=== PATIENT | male | born 1955 | race Caucasian/White ===

== ENCOUNTER 2019-04-11 12:27 | Emergency (ER) | payer OTHER, SELFPAY ==
[2019-04-11 12:27] VITALS: BP 154/101; PULSE 77; RESP 16; TEMP 36.4; O2SAT 99; BMI 31.1
--- NOTE | 2019-04-11 12:49 | ED.VIS.GEN ---
History of Present Illness Chief Complaint: Ear Problem Informant: Patient, Significant Other Onset: Yesterday Context: Gradual Onset Timing: Continuous Quality: sharp Location: right ear Current Severity: Severe Maximum Severity: Severe Worsened by: nothing Relieved by: nothing Associated Symptoms: Decreased hearing right ear Narrative: 63-year-old male presents with worsening right ear pain and decreased hearing of his right ear. No tenderness or trauma. No vomiting or diarrhea. No headache or neck pain. He is not lightheaded or dizzy. No history of similar symptoms. Denies any upper respiratory symptoms. Denies any neurological deficits. Prior similar symptoms: No Recent Illness/Hospitalization: No Past Medical History - Allergies and Home Meds Allergies/Adverse Reactions: Allergies No Known Allergies Allergy (Verified 04/11/19 12:29) Primary Care Physician: Bernard Ortiz MD [STAFF PHYSICIAN] - As soon as possible Prior records reviewed: Yes Past Medical History: None Surgical History: noncontributory Lives: With Family Smoking Status: Former smoker Alcohol: Occasional Review of Systems All systems negative except as indicated General: Denies: Chills, Fever Eyes: Denies: Visual changes - bilaterally, Blurred Vision - bilaterally ENT: Reports: Right ear pain. Denies: Rhinorrhea, Sore throat Cardiovascular: Denies: Chest pain, Palpitations, Heart racing Respiratory: Denies: Dyspnea, Cough, Sputum Gastrointestinal: Denies: Abdominal pain, Nausea, Vomiting, Diarrhea Genitourinary: Denies: Dysuria, Hematuria, Frequency Musculoskeletal: Denies: Neck pain, Back pain Skin: Denies: Rash, Abscess, Abrasions, Wounds Neurological: Denies: Headache, Weakness, Parasthesia Psych: Denies: Depression, Anxiety, Suicidal thoughts Endocrine: Denies: Polyuria, Polydipsia Physical Exam Vital Signs/Narrative: Vital Signs Temp Pulse Resp BP Pulse Ox 04/11/19 12:27 97.6 F L 77 16 154/101 H 99 Inital Vital Signs reviewed: Yes General: Well nourished, Well developed, No Acute Distress Head: Normocephalic, Atraumatic Eyes: Perrl, EOMI ENT: - - Patient has right otitis externa with purulent drainage and redness and swelling of the right external ear canal. Patient has a large white area on the tympanic membrane with concern for perforation but there is no definitive evidence of a perforation on visual inspection. There is no mastoid tenderness. Left external ear canal and tympanic membrane both are normal. Neck: Supple, Nontender, No lymphadenopathy Cardiovascular: Regular rate, Regular rhythm Respiratory: No distress, CTA bilaterally, Chest nontender Abdomen: Soft, Nontender, Nondistended, Normal bowel sounds, No masses Back: Nontender, Normal Inspection Extremities: Nontender, No edema Skin: Normal color, No rash Neurological: Alert, Oriented x3 Psychological: Normal affect Diagnostic/Tx/Re-eval - Medical Decision Making Patient has right otitis externa but we are also concerned he may have a perforated tympanic membrane. He denies history of chronic ear infections or previous trauma. 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 Therefore we will prescribe both amoxicillin and Cortisporin otic and have him follow-up with his primary care as well as referral to ENT. ED Disposition - Plan for ED Patient: Disposition: Home or Assisted Living Diagnosis: Otitis externa Instructions: OTITIS MEDIA, Abx Tx (Adult), RUPTURED TM, Infected (Adult) Prescriptions: Amoxicillin 500 mg PO TID #30 tab Prescription Printed Neomyc/Colist/Hydrocort/Thonzn [Cortisporin-Tc Ear Suspension] 10 ml OT 4X/DAY #1 drops.susp Prescription Printed Referrals: Bernard Ortiz MD [STAFF PHYSICIAN] - As soon as possible
== END 2019-04-11 13:25 | disposition home or self-care (01) ==
PROVIDERS: Emergency Provider Physician Assistant Medical
DX: H60.91 Unspecified otitis externa, right ear (principal); Z87.891 Personal history of nicotine dependence
CPT/HCPCS: 99282

== ENCOUNTER 2024-04-23 08:15 | Outpatient (RCR) | payer OTHER, SELFPAY ==
[2024-04-09 10:18] VITALS: BP 144/84; PULSE 105; RESP 18; TEMP 36.1; BMI 30.5
[2024-04-12 10:00] VITALS: BP 179/84; PULSE 92; TEMP 36.8; BMI 30.5
--- NOTE | 2024-04-12 11:11 | WC ---
PHOTO 04/09/24 LEFT DORSAL FT
[2024-04-14 07:57] VITALS: BP 146/84; PULSE 87; TEMP 37.1; BMI 30.5
--- NOTE | 2024-04-14 08:26 | HP.PCM_ITS ---
History of Present Illness Date of Service: 04/14/24 Chief Complaint: Left foot wound History of Wound: Left foot wound secondary to a work-related injury Progress of Wound: Mr. Orantes is a 68-year-old male presented wound care center today for evaluation and treatment for full-thickness wound to the dorsal aspect of left foot. Patient was involved in a work-related injury where a large object struck his foot causing a segment of tarsal fracture. He was seen in outside facility where Dr. Morgan treated the patient and debriding his wound and placing a negative pressure wound VAC to help heal the exposed tissue. The patient has been getting wound VAC changes at the wound care center by the nursing staff. He denies any pain to the left foot. He denies constitutional symptoms. No other pedal complaints at this time. [facility] Home Medications ?Medication ?Instructions ?Recorded ?Last Taken ?Type amoxicillin 500 mg tablet 500 mg PO TID #30 tabs 04/11/19 Unknown Rx [id number]-[id number] 3.3 10 ml OT 4X/DAY ##1 04/11/19 Unknown Rx mg-3 mg-10 mg-0.5 mg/mL ear drops,susp aspirin 04/09/24 Unknown History latanoprost 0.005 % eye drops 1 drp ophthalmic (eye) DAILY 04/09/24 Unknown History sulfamethoxazole 400 2 tab PO Q12.TCU 04/09/24 Unknown History mg-trimethoprim 80 mg tablet Allergy/AdvReac Type Severity Reaction Status Date / Time No Known Allergies Allergy Verified 04/09/24 10:14 Social History Smoking Status: Former smoker Vital Signs Vital Signs Vital Signs: 04/14/24 07:57 Temperature 98.8 F Temperature Source Temporal Pulse Rate 87 Blood Pressure 146/84 H Blood Pressure Mean 104 Blood Pressure Source Monitor Blood Pressure Position Sitting Blood Pressure Location Left Arm Oxygen Delivery Method Room Air Weight Weight: 88.451 kg Body Mass Index (BMI) 30.5 Physical Exam Narrative Vascular: DP and PT pulse are palpable to the left lower extremity. CFT is brisk. Skin temperature great is warm to warm from proximal ankles to distal digits bilateral. Neurological: Light touch intact. Patient does respond to painful stimuli. Dermatological: Full-thickness wound to the dorsal aspect of the left foot measuring 5.7 x 3.5 x 0.3 cm. Wound base is 100% granular nature. No drainage. No probe to bone. No sign of infection. Excisional debridement down to and including subcutaneous tissue with a number 5 mm dermal curette to the dorsal left foot wound without incident. Predebridement measurement was 5.6 x 3.4 x 0.2 cm. Postdebridement measurement is 5.7 x 3.5 x 0.3 cm. Musculoskeletal: Muscle strength is 5 out of 5 in all quadrants left lower extremity. No pain on palpation to the full-thickness wound to the dorsal aspect of the left foot. No pain with calf pressure. Debridement Note Debridement Note Debridement Free Text: Excisional debridement down to and including subcutaneous tissue with a number 5 mm dermal curette to the dorsal left foot wound without incident. Predebridement measurement was 5.6 x 3.4 x 0.2 cm. Postdebridement measurement is 5.7 x 3.5 x 0.3 cm. Post-Debridement Measurements and Additional Note: Post-Debridement Measurements/Treatment - Nurse 1 - General Ulcer Assessment Start: 04/09/24 10:18 Freq: Status: Active Protocol: JH.KIKE Activity Type Activity Date Activity User E-sign Co-sign Detail Recorded Client Recorded Date Recorded By Document 04/09/24 10:18 KW [id number] 04/09/24 10:20 KW Document 04/12/24 10:00 ML [id number] 04/12/24 10:09 ML Document 04/14/24 07:57 GM [id number] 04/14/24 08:05 GM 04/09/24 04/12/24 04/14/24 10:18 10:00 07:57 - Today's Visit Information Type of service Nurse-only Nurse-only Initial Visit Visit Visit Arrival Mode Ambulatory, Ambulatory Ambulatory, Crutches Crutches Transfer Assistance None Accompanied by Patient Identification Verified (Name & Yes Yes Yes ) Patient Requires Transmission-Based No Precautions Height and Weight Height 5 ft 7 in Weight 88.451 kg Weight in Pounds 195.0 lbs Weight Measurement Method Estimated by Patient Body Mass Index (BMI) 30.5 30.5 30.5 BMI Classification Obese Obese Obese BSA - Charlene 2.00 Vital Signs Temperature (97.8 F-99.1 F) 97 F L 98.2 F 98.8 F Temperature Source Temporal Temporal Temporal Pulse Rate (60-100) 105 H 92 87 Pulse Location Monitor Monitor Monitor Respiratory Rate (12-18) 18 Respiratory rate source Observation Observation Oxygen Delivery Method Room Air Room Air Blood Pressure (90/60-120/80) 144/84 H 179/84 H 146/84 H Blood Pressure Mean 104 115 104 Source Monitor Monitor Monitor Position Semi-Fowlers Sitting Blood Pressure Location Left Arm Left Arm History Since Last Visit- (Skip if this is Patient's initial visit) Have you changed medications since your No No last visit? Any new allergies or adverse reactions No No Had a fall/change in ADL's that may No No increase risk of falls Signs or symptoms of abuse and/or No No neglect since last visit Have you been in the hospital since your No No last visit? Has dressing in place as prescribed Yes Yes Has compression in place as prescribed Yes Yes Has offloadiing in place as prescribed No Yes Experienced any changes in pain level or No No management Left Footwear No Footwear Surgical Shoe with pressure relief insole Right Footwear Regular Shoe Regular Shoe Pain Scale: 0-10 Numeric Is Patient Pain Free? No Yes Yes WC - Nurse 1 - General Ulcer Measurement Start: 04/09/24 10:18 Freq: Status: Active Protocol: Activity Type Activity Date Activity User E-sign Co-sign Detail Recorded Client Recorded Date Recorded By Document 04/09/24 10:18 KW [id number] 04/09/24 10:20 KW Document 04/12/24 10:00 ML [id number] 04/12/24 10:09 ML Document 04/14/24 07:57 GM [id number] 04/14/24 08:05 GM 04/09/24 04/12/24 04/14/24 10:18 10:00 07:57 Wound Center Nurse 1 #1 LT DORSAL FOOT -Current Size (cm) - Length 4 6.2 -Current Size (cm) - Width 6.8 3.5 -Current Size (cm) - Depth 0.3 0.2 -Total Square Cm 27.2 21.70 -Date of Last Picture (Recall this 04/14/24 field) -Exudate Amt Medium Small -Exudate Type Serosanguineous Serosanguineous -Wound Margin Distinct, Distinct, Outline Outline Attached Attached -Granulation Amt Small (1-33%) Medium (34-66%) Large (67-100%) -Granulation Quality Red Red -Slough/Fibrin Yes -Necrosis Amt Medium (34-66%) Small (1-33%) -Necrotic Tissue Type Adherent Slough -Texture (Danielle-wound Skin Appearance) Assessed Assessed -Moisture (Danielle-wound Skin Appearance) Assessed Assessed Assessed, Maceration -Color (Danielle-wound Skin Appearance) Assessed Assessed Assessed -Temperature (Danielle-wound Skin No Abnormality No Abnormality No Abnormality Appearance) (Pt Warm) (Pt Warm) (Pt Warm) -Tenderness on Palpation (Danielle-wound No Yes No Skin Appearance) -Ulcer Cleansing Soap and Water Soap and Water Soap and Water -Foul Odor after Cleansing No No No -Anesthetic Used 4% Lidocaine Solution WC - Nurse 2 - General Ulcer CM Notes Start: 04/09/24 10:18 Freq: Status: Active Protocol: Activity Type Activity Date Activity User E-sign Co-sign Detail Recorded Client Recorded Date Recorded By Document 04/14/24 08:15 DS [id number] 04/14/24 08:17 DS 04/14/24 08:15 Wound Center Nurse 2 -Time 08:14 -Correct Patient Yes -Correct Side, Site, Position Yes -Correct Procedure Yes -Procedure Performed Yes -Type of Procedure Debridement -Clinical Debridement Subcutaneous -Tissue Removed Subcutaneous -Post Debridement (cm) - Length 5.7 -Post Debridement (cm) - Width 3.5 -Post Debridement (cm) - Depth 0.3 -Total Square (Post) (cm) 19.95 -Area of Debridement (cm) - Length 5.7 -Area of Debridement (cm) - Width 3.5 -Total Square (Area) (cm) 19.95 -Tunneling No -Undermining/Tunneling No -Circular Undermining No -Wound/Ulcer Outcome Not Healed -Ulcer Cleansing Rinsed/ Irrigated with Saline -Foul Odor after Cleansing No -Bioengineered Tissue No -Bleeding Controlled with Pressure -Treatment Response Procedure Tolerated Well -Debridement - Subq, 1st 20sq cm Yes Pain Scale: 0-10 Numeric Is Patient Pain Free? Yes WC - Nurse 3 - General Ulcer D/C NN Start: 04/09/24 10:18 Freq: Status: Active Protocol: Activity Type Activity Date Activity User E-sign Co-sign Detail Recorded Client Recorded Date Recorded By Document 04/09/24 10:20 KW [id number] 04/09/24 10:21 KW Document 04/12/24 10:00 ML [id number] 04/12/24 10:09 ML 04/09/24 04/12/24 10:20 10:00 Wound Care Center Nurse 3 #1 LT DORSAL FOOT -Ulcer Cleansing Soap and Water -Foul Odor after Cleansing Yes -Negative Pressure Wound Therapy Continue Continue -Setting (mmHg) 125 125 -Negative Pressure is Continuous Continuous -NPWT Application Charge NPWT > 50 sq cm NPWT </= 50 sq ($) cm ($) Left -Lotion applied to leg before Yes compression wrap -Compression Wrap Jaxson Wrap Vital Signs Temperature (97.8 F-99.1 F) 98.2 F Temperature Source Temporal Pulse Rate (60-100) 92 Pulse Location Monitor Blood Pressure (90/60-120/80) 179/84 H Blood Pressure Mean 115 Source Monitor Pain Scale: 0-10 Numeric Is Patient Pain Free? Yes Yes WC - Visit Discharge Discharge Condition Stable Ambulatory Status Ambulatory, Crutches Transportation Private Auto Medication Reconcilliation completed & No provided to patient/care provider Clinical Summary of Care Provided Yes Assessment/Plan Assessment/Plan (1) Nondisplaced fracture of second metatarsal bone, left foot, initial encounter for closed fracture: CODE(S): S92.325A - Nondisplaced fracture of second metatarsal bone, left foot, initial encounter for closed fracture PLAN: Patient was examined and evaluated. All findings were discussed with the patient. All questions were answered to the patient's satisfaction. Excisional debridement down to and including subcutaneous tissue with a number 5 mm dermal curette to the dorsal left foot wound without incident. Predebridement measurement was 5.6 x 3.4 x 0.2 cm. Postdebridement measurement is 5.7 x 3.5 x 0.3 cm. The left foot was cleaned and patted dry. Negative pressure wound VAC was applied per the spinning machine tender recommendation by the nursing staff at the wound care center. Patient will follow-up next Friday for wound VAC change. Will begin authorization through home health care to see if we can get Friday and Friday wound VAC changes and we will change and see the patient every Friday. We will begin C9 authorization to add diagnosis code for full-thickness wound left foot with exposed subcutaneous tissue L97.522, as well as CPT code 04978 for excisional debridement down to subcutaneous tissue. We will also be authorizing through Workmen's [employer]. amniotic skin graft substitute EpiFix to temporary help agency referral clerk the patient in a speedy recovery as this is a large defect and will need additional skin grafts to help heal the wound. If the patient is not approved I will recommend taking the patient back to the operating room to be preforming split-thickness skin graft harvest with application to the dorsal left foot. Follow-up at the wound care center with Dr. Aguirre in 1 week.
--- NOTE | 2024-04-15 09:34 | WC ---
PHOTO 04/14/24 LEFT DORSAL FOOT
[2024-04-16 08:14] VITALS: BP 126/88; PULSE 89; RESP 18; TEMP 37.3; BMI 30.5
[2024-04-19 08:31] VITALS: BP 162/91; PULSE 75; RESP 16; BMI 30.5
[2024-04-21 09:00] VITALS: BP 132/88; PULSE 105; RESP 16; BMI 30.5
--- NOTE | 2024-04-21 11:18 | PN.PCM_ITS ---
History of Present Illness Date of Service: 04/21/24 Chief Complaint: Left foot wound History of Wound: Left foot wound secondary to a work-related injury Progress of Wound: Left dorsal foot wound secondary to work-related injury stable with no sign of infection. Subjective Subjective Mr. Orantes is a 68-year-old male presenting to wound care center today for follow- up and evaluation of left foot full-thickness wound as well as second metatarsal fracture. Patient has been getting wound VAC changes per nursing staff at the wound care center. He denies any pain to left lower extremity. He is weightbearing as tolerated. Denies any new onset of trauma. Denies constitutional symptoms. Other pedal complaints at this time. Objective Data Objective Data Vital Signs: Vital Signs Temp Pulse Resp BP O2 Del Method 99.1 F 105 H 16 132/88 H Room Air 04/16/24 08:14 04/21/24 09:00 04/21/24 09:00 04/21/24 09:00 04/21/24 09:00 Oxygen Delivery Method Room Air Weight: 88.451 kg Body Mass Index (BMI) 30.5 Physical Exam Narrative Vascular: DP and PT pulse are palpable to the left lower extremity. CFT is brisk. Skin temperature great is warm to warm from proximal ankles to distal digits bilateral. Neurological: Light touch intact. Patient does respond to painful stimuli. Dermatological: Full-thickness wound to the dorsal aspect of the left foot measuring 5.2 x 3.3 x 0.1 cm. Wound base is 100% granular nature. No drainage. No probe to bone. No sign of infection. Excisional debridement down to and including subcutaneous tissue with a number 5 mm dermal curette to the dorsal left foot wound without incident. Predebridement measurement was 5.1 x 3.0 x 0.1 cm. Postdebridement measurement is 5.2 x 3.3 x 0.1 cm. Musculoskeletal: Muscle strength is 5 out of 5 in all quadrants left lower extremity. No pain on palpation to the full-thickness wound to the dorsal aspect of the left foot. No pain with calf pressure. Debridement Note Debridement Note Debridement Free Text: Excisional debridement down to and including subcutaneous tissue with a number 5 mm dermal curette to the dorsal left foot wound without incident. Predebridement measurement was 5.1 x 3.0 x 0.1 cm. Postdebridement measurement is 5.2 x 3.3 x 0.1 cm. Post-Debridement Measurements and Additional Note: Post-Debridement Measurements/Treatment WC - Nurse 1 - General Ulcer Assessment Start: 04/09/24 10:18 Freq: Status: Active Protocol: JH.LOWARTHUR Activity Type Activity Date Activity User E-sign Co-sign Detail Recorded Client Recorded Date Recorded By Document 04/09/24 10:18 KW [id number] 04/09/24 10:20 KW Document 04/12/24 10:00 ML [id number] 04/12/24 10:09 ML Document 04/14/24 07:57 GM [id number] 04/14/24 08:05 GM Document 04/16/24 08:14 DS [id number] 04/16/24 08:15 DS Document 04/19/24 08:31 BMF [id number] 04/19/24 08:32 BMF Document 04/21/24 09:00 KW [id number] 04/21/24 09:12 KW 04/09/24 04/12/24 04/14/24 10:18 10:00 07:57 - Today's Visit Information Type of service Nurse-only Nurse-only Initial Visit Visit Visit Arrival Mode Ambulatory, Ambulatory Ambulatory, Crutches Crutches Transfer Assistance None Accompanied by Patient Identification Verified (Name & Yes Yes Yes ) Patient Requires Transmission-Based No Precautions Height and Weight Height 5 ft 7 in Weight 88.451 kg Weight in Pounds 195.0 lbs Weight Measurement Method Estimated by Patient Body Mass Index (BMI) 30.5 30.5 30.5 BMI Classification Obese Obese Obese BSA - Charlene 2.00 Vital Signs Temperature (97.8 F-99.1 F) 97 F L 98.2 F 98.8 F Temperature Source Temporal Temporal Temporal Pulse Rate (60-100) 105 H 92 87 Pulse Location Monitor Monitor Monitor Respiratory Rate (12-18) 18 Respiratory rate source Observation Observation Oxygen Delivery Method Room Air Room Air Blood Pressure (90/60-120/80) 144/84 H 179/84 H 146/84 H Blood Pressure Mean (mm Hg) 104 115 104 Source Monitor Monitor Monitor Position Semi-Fowlers Sitting Blood Pressure Location Left Arm Left Arm History Since Last Visit- (Skip if this is Patient's initial visit) Have you changed medications since your No No last visit? Any new allergies or adverse reactions No No Had a fall/change in ADL's that may No No increase risk of falls Signs or symptoms of abuse and/or No No neglect since last visit Have you been in the hospital since your No No last visit? Has dressing in place as prescribed Yes Yes Has compression in place as prescribed Yes Yes Has offloadiing in place as prescribed No Yes Experienced any changes in pain level or No No management Left Footwear No Footwear Surgical Shoe with pressure relief insole Right Footwear Regular Shoe Regular Shoe Pain Scale: 0-10 Numeric Is Patient Pain Free? 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 ) Arrival Mode Ambulatory, Ambulatory, Ambulatory, Crutches Crutches Crutches Transfer Assistance None Accompanied by Patient Identification Verified (Name & Yes Yes Yes ) Patient Requires Transmission-Based No No Precautions Height and Weight Height Weight Weight in Pounds Weight Measurement Method Body Mass Index (BMI) 30.5 30.5 30.5 BMI Classification Obese Obese Obese [facility] [place] Vital Signs Temperature (97.8 F-99.1 F) 99.1 F Temperature Source Temporal Pulse Rate (60-100) 89 75 105 H Pulse Location Monitor Monitor Monitor Respiratory Rate (12-18) 18 16 16 Respiratory rate source Observation Observation Observation Oxygen Delivery Method Room Air Room Air Room Air Blood Pressure (90/60-120/80) 126/88 H 162/91 H 132/88 H Blood Pressure Mean (mm Hg) 100 114 102 Source Monitor Monitor Monitor Position Sitting Sitting Semi-Fowlers Blood Pressure Location Right Arm Left Arm Left Arm History Since Last Visit- (Skip if this is Patient's initial visit) Have you changed medications since your No No last visit? Any new allergies or adverse reactions No No Had a fall/change in ADL's that may No No increase risk of falls Signs or symptoms of abuse and/or No No neglect since last visit Have you been in the hospital since your No No last visit? Has dressing in place as prescribed Yes Yes Has compression in place as prescribed Yes Yes Has offloadiing in place as prescribed Yes Yes Experienced any changes in pain level or No No management Left Footwear Surgical Shoe No Footwear with pressure relief insole Right Footwear Regular Shoe Regular Shoe Pain Scale: 0-10 Numeric Is Patient Pain Free? Yes Yes Yes WC - Nurse 1 - General Ulcer Measurement Start: 04/09/24 10:18 Freq: Status: Active Protocol: Activity Type Activity Date Activity User E-sign Co-sign Detail Recorded Client Recorded Date Recorded By Document 04/09/24 10:18 KW [id number] 04/09/24 10:20 KW Document 04/12/24 10:00 ML [id number] 04/12/24 10:09 ML Document 04/14/24 07:57 GM [id number] 04/14/24 08:05 GM Document 04/21/24 09:00 KW [id number] 04/21/24 09:12 KW 04/09/24 04/12/24 04/14/24 10:18 10:00 07:57 Wound Center Nurse 1 #1 LT DORSAL FOOT -Current Size (cm) - Length 4 6.2 -Current Size (cm) - Width 6.8 3.5 -Current Size (cm) - Depth 0.3 0.2 -Total Square Cm 27.2 21.70 -Date of Last Picture (Recall this 04/14/24 field) -Exudate Amt Medium Small -Exudate Type Serosanguineous Serosanguineous -Wound Margin Distinct, Distinct, Outline Outline Attached Attached -Granulation Amt Small (1-33%) Medium (34-66%) Large (67-100%) -Granulation Quality Red Red -Slough/Fibrin Yes -Necrosis Amt Medium (34-66%) Small (1-33%) -Necrotic Tissue Type Adherent Slough -Texture (Danielle-wound Skin Appearance) Assessed Assessed -Moisture (Danielle-wound Skin Appearance) Assessed Assessed Assessed, Maceration -Color (Danielle-wound Skin Appearance) Assessed Assessed Assessed -Temperature (Danielle-wound Skin No Abnormality No Abnormality No Abnormality Appearance) (Pt Warm) (Pt Warm) (Pt Warm) -Tenderness on Palpation (Danielle-wound No Yes No Skin Appearance) -Ulcer Cleansing Soap and Water Soap and Water Soap and Water -Foul Odor after Cleansing No No No -Anesthetic Used 4% Lidocaine Solution 04/21/24 09:00 Wound Center Nurse 1 #1 LT DORSAL FOOT -Current Size (cm) - Length 5.8 -Current Size (cm) - Width 3.3 -Current Size (cm) - Depth 0.3 -Total Square Cm 19.14 -Date of Last Picture (Recall this 04/21/24 field) -Exudate Amt Medium -Exudate Type Serosanguineous -Wound Margin Distinct, Outline Attached -Granulation Amt Large (67-100%) -Granulation Quality [place],Red -Slough/Fibrin -Necrosis Amt Small (1-33%) -Necrotic Tissue Type Adherent Slough -Texture (Danielle-wound Skin Appearance) Assessed -Moisture (Danielle-wound Skin Appearance) Assessed, Maceration -Color (Danielle-wound Skin Appearance) Assessed, Erythema -Temperature (Danielle-wound Skin No Abnormality Appearance) (Pt Warm) -Tenderness on Palpation (Danielle-wound No Skin Appearance) -Ulcer Cleansing Soap and Water -Foul Odor after Cleansing No -Anesthetic Used 4% Lidocaine Solution WC - Nurse 2 - General Ulcer CM Notes Start: 04/09/24 10:18 Freq: Status: Active Protocol: Activity Type Activity Date Activity User E-sign Co-sign Detail Recorded Client Recorded Date Recorded By Document 04/14/24 08:15 DS [id number] 04/14/24 08:17 DS Document 04/21/24 09:36 [id number] 04/21/24 09:37 04/14/24 04/21/24 08:15 09:36 Wound Center Nurse 2 #1 LT DORSAL FOOT -Time 08:14 09:37 -Correct Patient Yes Yes -Correct Side, Site, Position Yes Yes -Correct Procedure Yes Yes -Procedure Performed Yes Yes -Type of Procedure Debridement Debridement -Clinical Debridement Subcutaneous Subcutaneous -Tissue Removed Subcutaneous Subcutaneous -Post Debridement (cm) - Length 5.7 5.2 -Post Debridement (cm) - Width 3.5 3.3 -Post Debridement (cm) - Depth 0.3 0.1 -Total Square (Post) (cm) 19.95 17.16 -Area of Debridement (cm) - Length 5.7 5.2 -Area of Debridement (cm) - Width 3.5 3.3 -Total Square (Area) (cm) 19.95 17.16 -Tunneling No No -Undermining/Tunneling No No -Circular Undermining No No -Wound/Ulcer Outcome Not Healed Not Healed -Ulcer Cleansing Rinsed/ Rinsed/ Irrigated with Irrigated with Saline Saline -Foul Odor after Cleansing No No -Bioengineered Tissue No No -Bleeding Controlled with Pressure Pressure -Treatment Response Procedure Procedure Tolerated Well Tolerated Well -Offloading Yes -Type of Offloading Surgical Shoe -Debridement - Subq, 1st 20sq cm Yes Yes Pain Scale: 0-10 Numeric Is Patient Pain Free? Yes Yes WC - Nurse 3 - General Ulcer D/C NN Start: 04/09/24 10:18 Freq: Status: Active Protocol: Activity Type Activity Date Activity User E-sign Co-sign Detail Recorded Client Recorded Date Recorded By Document 04/09/24 10:20 KW [id number] 04/09/24 10:21 KW Document 04/12/24 10:00 ML [id number] 04/12/24 10:09 ML Document 04/14/24 08:54 GM [id number] 04/14/24 08:55 GM Document 04/16/24 08:15 DS [id number] 04/16/24 08:52 DS Document 04/19/24 08:31 BMF [id number] 04/19/24 08:32 BMF Document 04/21/24 10:02 KW [id number] 04/21/24 10:03 KW 04/09/24 04/12/24 04/14/24 10:20 10:00 08:54 Wound Care Center Nurse 3 #1 LT DORSAL FOOT -Ulcer Cleansing Soap and Water Not Cleansed -Foul Odor after Cleansing Yes No -Negative Pressure Wound Therapy Continue Continue Continue -Setting (mmHg) 125 125 -Negative Pressure is Continuous Continuous Continuous -Other Dressing -NPWT Application Charge NPWT > 50 sq cm NPWT </= 50 sq NPWT </= 50 sq ($) cm ($) cm ($) -Wound Comment(s) Left -Lotion applied to leg before Yes compression wrap -Compression Wrap Jaxson Wrap Treatment Response Vital Signs Temperature (97.8 F-99.1 F) 98.2 F Temperature Source Temporal Pulse Rate (60-100) 92 Pulse Location Monitor Respiratory Rate (12-18) Respiratory rate source Oxygen Delivery Method Blood Pressure (90/60-120/80) 179/84 H Blood Pressure Mean (mm Hg) 115 Source Monitor Position Blood Pressure Location Pain Scale: 0-10 Numeric Is Patient Pain Free? Yes Yes Yes WC - Visit Discharge Discharge Condition Stable Stable Ambulatory Status Ambulatory, Ambulatory, Crutches Crutches Transportation Private Auto Private Auto Accompanied by Medication Reconcilliation completed & No provided to patient/care provider Clinical Summary of Care Provided Yes 04/16/24 04/19/24 04/21/24 08:15 08:31 10:02 Wound Care Center Nurse 3 #1 LT DORSAL FOOT -Ulcer Cleansing Soap and Water Soap and Water -Foul Odor after Cleansing No No -Negative Pressure Wound Therapy Continue Continue Continue -Setting (mmHg) 125 125 125 -Negative Pressure is Continuous Continuous Continuous -Other Dressing abd to pad tubing -NPWT Application Charge NPWT </= 50 sq NPWT </= 50 sq NPWT & cm ($) cm ($) Debridement (nc ) -Wound Comment(s) USED HOME WOUND VAC DRESSING Left -Lotion applied to leg before No compression wrap -Compression Wrap Jaxson Wrap Jaxson Wrap Jaxson Wrap Treatment Response Procedure Tolerated Well Vital Signs Temperature (97.8 F-99.1 F) Temperature Source Pulse Rate (60-100) 75 Pulse Location Monitor Respiratory Rate (12-18) 16 Respiratory rate source Observation Oxygen Delivery Method Room Air Blood Pressure (90/60-120/80) 162/91 H Blood Pressure Mean (mm Hg) 114 Source Monitor Position Sitting Blood Pressure Location Left Arm Pain Scale: 0-10 Numeric Is Patient Pain Free? Yes Yes Yes WC - Visit Discharge Discharge Condition Stable Stable Stable Ambulatory Status Ambulatory, Ambulatory, Ambulatory, Crutches Crutches Crutches Transportation Private Auto Private Auto Private Auto Accompanied by Medication Reconcilliation completed & No provided to patient/care provider Clinical Summary of Care Provided Yes Assessment/Plan Assessment/Plan (1) Nondisplaced fracture of second metatarsal bone, left foot, initial encounter for closed fracture: CODE(S): S92.325A - Nondisplaced fracture of second metatarsal bone, left foot, initial encounter for closed fracture PLAN: Patient was examined and evaluated. All findings were discussed with the patient. All questions were answered to the patient's satisfaction. Excisional debridement down to and including subcutaneous tissue with a number 5 mm dermal curette to the dorsal left foot wound without incident. Predebridement measurement was 5.1 x 3.0 x 0.1 cm. Postdebridement measurement is 5.2 x 3.3 x 0.1 cm. The left foot was cleaned and patted dry. Negative pressure wound VAC was applied per the head sugar reprocess operator recommendation by the nursing staff at the wound care center. Plan will be for 1 more week of negative pressure wound VAC to the left lower extremity. After that we will be waiting for authorization through the patient's Workmen's Comp. for graft application. Follow-up at the wound care center with Dr. Aguirre in 1 week.
--- NOTE | 2024-04-21 13:59 | WC ---
PHOTO 04/21/24 LEFT FOOT
[2024-04-23 08:42] VITALS: BP 141/90; PULSE 91; RESP 18; TEMP 36.6; BMI 30.5
== END 2024-04-23 23:59 | disposition home or self-care (01) ==
LOC: WC 08:15
PROVIDERS: Visit Provider Podiatrist Foot & Ankle Surgery
DX: L97.522 Non-pressure chronic ulcer of other part of left foot with fat layer exposed (principal); S91.302S Unspecified open wound, left foot, sequela; S92.325S Nondisplaced fracture of second metatarsal bone, left foot, sequela; W20.8XXS Other cause of strike by thrown, projected or falling object, sequela; Z79.82 Long term (current) use of aspirin; Z79.899 Other long term (current) drug therapy; Z87.891 Personal history of nicotine dependence
CPT/HCPCS: 11042; 97605; 97606; 99213; G0463

== ENCOUNTER 2024-05-19 09:00 | Outpatient (RCR) | payer OTHER, SELFPAY ==
[2024-04-24 02:40] VITALS: BP 141/90; PULSE 91; RESP 18; TEMP 36.6; BMI 30.5
[2024-04-26 08:26] VITALS: BP 162/65; PULSE 76; RESP 16; TEMP 36.9; BMI 30.5
[2024-04-28 08:12] VITALS: BP 152/92; PULSE 78; RESP 18; TEMP 36.1; BMI 30.5
--- NOTE | 2024-04-28 09:56 | PCM.WC.PN ---
History of Present Illness Date of Service: 04/28/24 Chief Complaint: Left foot wound History of Wound: Left foot wound secondary to a work-related injury Progress of Wound: Stable left foot wound. Subjective Subjective Mr. Orantes is a 68-year-old male presenting to wound care center today for follow-up evaluation of left foot wound secondary to trauma related to a work injury. Patient is seen by orthopedic for the fractures of the lesser metatarsals and is doing well. He is weightbearing as tolerated in the cam boot. He is not using his wound VAC at this time as we are on a holiday. We are still waiting for approval for graft placement through [facility] authorization. Overall the patient is doing well. He denies any new onset of trauma. Denies constitutional symptoms. No other pedal complaints at this time. Objective Data Objective Data Vital Signs: Vital Signs Temp Pulse Resp BP O2 Del Method 97 F L 78 18 152/92 H Room Air 04/28/24 08:12 04/28/24 08:12 04/28/24 08:12 04/28/24 08:12 04/26/24 08:26 Oxygen Delivery Method Room Air Weight: 88.451 kg Body Mass Index (BMI) 30.5 Physical Exam Narrative Vascular: DP and PT pulse are palpable to the left lower extremity. CFT is brisk. Skin temperature great is warm to warm from proximal ankles to distal digits bilateral. Neurological: Light touch intact. Patient does respond to painful stimuli. Dermatological: Full-thickness wound to the dorsal aspect of the left foot measuring 5.8 x 2.6 x 0.1 cm. Wound base is 100% granular nature. No drainage. No probe to bone. No sign of infection. Excisional debridement down to and including subcutaneous tissue with a number 5 mm dermal curette to the dorsal left foot wound without incident. Predebridement measurement was 5.6 x 2.4 x 0.1 cm. Postdebridement measurement is 5.8 x 2.6 x 0.1 cm. Musculoskeletal: Muscle strength is 5 out of 5 in all quadrants left lower extremity. No pain on palpation to the full-thickness wound to the dorsal aspect of the left foot. No pain with calf pressure. Debridement Note Debridement Note Debridement Free Text: Excisional debridement down to and including subcutaneous tissue with a number 5 mm dermal curette to the dorsal left foot wound without incident. Predebridement measurement was 5.6 x 2.4 x 0.1 cm. Postdebridement measurement is 5.8 x 2.6 x 0.1 cm. 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 ) Arrival Mode Ambulatory, Ambulatory Crutches Transfer Assistance None None Accompanied by Patient Identification Verified (Name & Yes Yes ) Patient Requires Transmission-Based No No Precautions Height and Weight Body Mass Index (BMI) 30.5 30.5 BMI Classification Obese Obese Vital Signs Temperature (97.8 F-99.1 F) 98.5 F 97 F L Temperature Source Temporal Temporal Pulse Rate (60-100) 76 78 Pulse Location Monitor Monitor Respiratory Rate (12-18) 16 18 Respiratory rate source Observation Observation Oxygen Delivery Method Room Air Blood Pressure (90/60-120/80) 162/65 H 152/92 H Blood Pressure Mean (mm Hg) 97 112 Source Monitor Monitor Position Sitting Semi-Fowlers Blood Pressure Location Left Arm Left Arm History Since Last Visit- (Skip if this is Patient's initial visit) Have you changed medications since your No No last visit? Any new allergies or adverse reactions No No Had a fall/change in ADL's that may No No increase risk of falls Signs or symptoms of abuse and/or No No neglect since last visit Have you been in the hospital since your No No last visit? Has dressing in place as prescribed Yes Yes Has compression in place as prescribed N/A Yes Has offloadiing in place as prescribed Yes N/A Experienced any changes in pain level or No No management Left Footwear Surgical Shoe with pressure relief insole Other Footwear boot opn the right Pain Scale: 0-10 Numeric Is Patient Pain Free? Yes Yes - Nurse 1 - General Ulcer Measurement Start: 04/26/24 08:26 Freq: Status: Active Protocol: Activity Type Activity Date Activity User E-sign Co-sign Detail Recorded Client Recorded Date Recorded By Document 04/28/24 08:12 STEPHEN [id number] 04/28/24 08:15 RB 04/28/24 08:12 Wound Center Nurse 1 #1 LT DORSAL FOOT -Combined with other wound No -Current Size (cm) - Length 4.2 -Current Size (cm) - Width 3.4 -Current Size (cm) - Depth 0.1 -Total Square Cm 14.28 -Photo Taken Yes -Tunneling No -Undermining/Tunneling No -Circular Undermining No -Exudate Amt Medium -Exudate Type Serosanguineous -Wound Margin Distinct, Outline Attached -Granulation Amt Medium (34-66%) -Granulation Quality [place] -Slough/Fibrin Yes -Necrosis Amt Medium (34-66%) -Necrotic Tissue Type Adherent Slough -Structure Exposed N/A -Texture (Danielle-wound Skin Appearance) Assessed, Scarring -Moisture (Danielle-wound Skin Appearance) Assessed -Color (Danielle-wound Skin Appearance) Assessed -Temperature (Danielle-wound Skin No Abnormality Appearance) (Pt Warm) -Tenderness on Palpation (Danielle-wound No Skin Appearance) -Ulcer Cleansing Wound Cleanser -Foul Odor after Cleansing No -Anesthetic Used 5% Lidocaine Gel - Nurse 2 - General Ulcer CM Notes Start: 04/26/24 08:26 Freq: Status: Active Protocol: Activity Type Activity Date Activity User E-sign Co-sign Detail Recorded Client Recorded Date Recorded By Document 04/28/24 08:43 AP [id number] 04/28/24 08:45 AP 04/28/24 08:43 Wound Center Nurse 2 -Time 08:44 -Correct Patient Yes -Correct Side, Site, Position Yes -Correct Procedure Yes -Procedure Performed Yes -Type of Procedure Debridement -Clinical Debridement Subcutaneous -Tissue Removed Subcutaneous -Post Debridement (cm) - Length 5.8 -Post Debridement (cm) - Width 2.6 -Post Debridement (cm) - Depth 0.1 -Total Square (Post) (cm) 15.08 -Area of Debridement (cm) - Length 5.8 -Area of Debridement (cm) - Width 2.6 -Total Square (Area) (cm) 15.08 -Tunneling No -Undermining/Tunneling No -Circular Undermining No -Wound/Ulcer Outcome Not Healed -Ulcer Cleansing Rinsed/ Irrigated with Saline -Foul Odor after Cleansing No -Bioengineered Tissue No -Bleeding Controlled with Pressure -Treatment Response Procedure Tolerated Well -Offloading No -Debridement - Subq, 1st 20sq cm Yes Pain Scale: 0-10 Numeric Is Patient Pain Free? Yes - Nurse 3 - General Ulcer D/C NN Start: 04/26/24 08:26 Freq: Status: Active Protocol: Activity Type Activity Date Activity User E-sign Co-sign Detail Recorded Client Recorded Date Recorded By Document 04/26/24 08:26 [facility] [id number] 04/26/24 08:30 BM Document 04/28/24 09:01 RB [id number] 04/28/24 09:02 RB 04/26/24 04/28/24 08:26 09:01 Vital Signs Temperature (97.8 F-99.1 F) 98.5 F Temperature Source Temporal Pulse Rate (60-100) 76 Pulse Location Monitor Respiratory Rate (12-18) 16 Respiratory rate source Observation Oxygen Delivery Method Room Air Blood Pressure (90/60-120/80) 162/65 H Blood Pressure Mean (mm Hg) 97 Source Monitor Position Sitting Blood Pressure Location Left Arm Pain Scale: 0-10 Numeric Is Patient Pain Free? Yes Yes Wound Care Center Nurse 3 #1 LT DORSAL FOOT -Ulcer Cleansing Soap and Water -Foul Odor after Cleansing No -Primary Dressing Applied Silvercel Fibracol Plus 4x4 -Other Dressing abd ABD -Primary Dressing Covered/Secured with Dry Gauze & Dry Gauze & Roll Gauze, Roll Gauze, Secured with Secured with Tape Tape -Fibracol Plus 4x4 2 -Silvercel 1 -Wound Comment(s) periwound ^ red , irritated and tender. CM assessed. hold vac reapplication at this time. apply silvercel , dry drsg until next visit on friday. CM will update dr. Left -Compression Wrap Jaxson Wrap -Other jaxson Treatment Response Procedure Procedure Tolerated Well Tolerated Well WC - Visit Discharge Discharge Condition Stable Stable Ambulatory Status Ambulatory, Crutches Crutches Transportation Private Auto Private Auto Accompanied by Medication Reconcilliation completed & No provided to patient/care provider Clinical Summary of Care Provided Yes Assessment/Plan Assessment/Plan (1) Nondisplaced fracture of second metatarsal bone, left foot, initial encounter for closed fracture: CODE(S): S92.325A - Nondisplaced fracture of second metatarsal bone, left foot, initial encounter for closed fracture PLAN: Patient was examined and evaluated. All findings were discussed with the patient. All questions were answered to the patient's satisfaction. Excisional debridement down to and including subcutaneous tissue with a number 5 mm dermal curette to the dorsal left foot wound without incident. Predebridement measurement was 5.6 x 2.4 x 0.1 cm. Postdebridement measurement is 5.8 x 2.6 x 0.1 cm. Left lower extremities were cleaned and patted dry. Fibrin call was applied to the full-thickness wound followed by dry sterile dressing and compression wrap. Patient will change his dressing every other day until follow-up. We are still waiting for authorization through the patient's Workmen's Comp. for amniotic skin graft substitute. Follow-up at the wound care center with Dr. Aguirre in 1 week.
[2024-05-05 08:40] VITALS: BP 133/90; PULSE 77; RESP 15; TEMP 36.8; BMI 30.5
--- NOTE | 2024-05-05 12:25 | PCM.WC.PN ---
History of Present Illness Date of Service: 05/05/24 Chief Complaint: Left foot wound History of Wound: Left foot wound secondary to a work-related injury Progress of Wound: Full-thickness wound left foot stable no sign of infection. Subjective Subjective Mr. Orantes is a 68-year-old male presenting to the wound care center today for follow-up evaluation of full-thickness wound to the dorsal left foot secondary to a work-related injury. He is being treated by orthopedics for the fractures in his lesser metatarsals. He is here today for amniotic skin graft substitute as it has been cleared for application per his workman comp case. He is doing well. Denies any new onset of trauma. Denies constitutional symptoms. Other pedal complaints at this time. Objective Data Objective Data Vital Signs: Vital Signs Temp Pulse Resp BP O2 Del Method 98.3 F 77 15 133/90 H Room Air 05/05/24 08:40 05/05/24 08:40 05/05/24 08:40 05/05/24 08:40 04/26/24 08:26 Oxygen Delivery Method Room Air Weight: 88.451 kg Body Mass Index (BMI) 30.5 Physical Exam Narrative Vascular: DP and PT pulse are palpable to the left lower extremity. CFT is brisk. Skin temperature great is warm to warm from proximal ankles to distal digits bilateral. Neurological: Light touch intact. Patient does respond to painful stimuli. Dermatological: Full-thickness wound to the dorsal aspect of the left foot measuring 5.7 x 2.2 x 0.1 cm. Wound base is 100% granular nature. No drainage. No probe to bone. No sign of infection. Excisional debridement down to and including subcutaneous tissue with a number 5 mm dermal curette to the dorsal left foot wound without incident. Predebridement measurement was 5.5 x 2.0 x 0.1 cm. Postdebridement measurement is 5.7 x 2.2 x 0.1 cm. EpiFix 4.0 x 4.5 cm was applied to the left full-thickness ulceration with 100% use. First application. The graft site was free and clear of any infection. The wound/skin graft substitute was dressed with nonadherent bandage secured in place with Steri-Strips followed by bolster dressing as well as a double layer Tubigrip. Musculoskeletal: Muscle strength is 5 out of 5 in all quadrants left lower extremity. No pain on palpation to the full-thickness wound to the dorsal aspect of the left foot. No pain with calf pressure. Debridement Note Debridement Note Debridement Free Text: Excisional debridement down to and including subcutaneous tissue with a number 5 mm dermal curette to the dorsal left foot wound without incident. Predebridement measurement was 5.5 x 2.0 x 0.1 cm. Postdebridement measurement is 5.7 x 2.2 x 0.1 cm. EpiFix 4.0 x 4.5 cm was applied to the left full-thickness ulceration with 100% use. First application. The graft site was free and clear of any infection. The wound/skin graft substitute was dressed with nonadherent bandage secured in place with Steri-Strips followed by bolster dressing as well as a double layer Tubigrip. Post-Debridement Measurements and Additional Note: Post-Debridement Measurements/Treatment - Nurse 1 - General Ulcer Assessment Start: 04/26/24 08:26 Freq: Status: Active Protocol: CARLOS ALBERTO Activity Type Activity Date Activity User E-sign Co-sign Detail Recorded Client Recorded Date Recorded By Document 04/26/24 08:26 BM [id number] 04/26/24 08:30 BMF Document 04/28/24 08:12 RB [id number] 04/28/24 08:15 RB Document 05/05/24 08:40 ML [id number] 05/05/24 08:51 ML 04/26/24 04/28/24 05/05/24 08:26 08:12 08:40 - Today's Visit Information Type of service Nurse-only Follow-up Visit Follow-up Visit Visit (Physician/DONOR RECRUITER (Physician/DONOR RECRUITER ) ) Arrival Mode Ambulatory, Ambulatory Ambulatory Crutches Transfer Assistance None None None Accompanied by Patient Identification Verified (Name & Yes Yes Yes ) Patient Requires Transmission-Based No No No Precautions Height and Weight Body Mass Index (BMI) 30.5 30.5 30.5 BMI Classification Obese Obese Obese Vital Signs Temperature (97.8 F-99.1 F) 98.5 F 97 F L 98.3 F Temperature Source Temporal Temporal Temporal Pulse Rate (60-100) 76 78 77 Pulse Location Monitor Monitor Monitor Respiratory Rate (12-18) 16 18 15 Respiratory rate source Observation Observation Observation Oxygen Delivery Method Room Air Blood Pressure (90/60-120/80) 162/65 H 152/92 H 133/90 H Blood Pressure Mean (mm Hg) 97 112 104 Source Monitor Monitor Monitor Position Sitting Semi-Fowlers Sitting Blood Pressure Location Left Arm Left Arm Right Arm History Since Last Visit- (Skip if this is Patient's initial visit) Have you changed medications since your No No No last visit? Any new allergies or adverse reactions No No No Had a fall/change in ADL's that may No No No increase risk of falls Signs or symptoms of abuse and/or No No No neglect since last visit Have you been in the hospital since your No No No last visit? Has dressing in place as prescribed Yes Yes Yes Has compression in place as prescribed N/A Yes N/A Has offloadiing in place as prescribed Yes N/A Yes Experienced any changes in pain level or No No No management Left Footwear Surgical Shoe with pressure relief insole Other Footwear boot opn the right Pain Scale: 0-10 Numeric Is Patient Pain Free? Yes Yes Yes WC - Nurse 1 - General Ulcer Measurement Start: 04/26/24 08:26 Freq: Status: Active Protocol: Activity Type Activity Date Activity User E-sign Co-sign Detail Recorded Client Recorded Date Recorded By Document 04/28/24 08:12 RB [id number] 04/28/24 08:15 RB Document 05/05/24 08:40 ML [id number] 05/05/24 08:51 ML 04/28/24 05/05/24 08:12 08:40 Wound Center Nurse 1 #1 LT DORSAL FOOT -Combined with other wound No -Current Size (cm) - Length 4.2 5.2 -Current Size (cm) - Width 3.4 3 -Current Size (cm) - Depth 0.1 0.1 -Total Square Cm 14.28 15.6 -Photo Taken Yes Yes -Tunneling No -Undermining/Tunneling No -Circular Undermining No -Exudate Amt Medium Medium -Exudate Type Serosanguineous Serosanguineous -Wound Margin Distinct, Distinct, Outline Outline Attached Attached -Granulation Amt Medium (34-66%) Medium (34-66%) -Granulation Quality [place] -Slough/Fibrin Yes Yes -Necrosis Amt Medium (34-66%) Medium (34-66%) -Necrotic Tissue Type Adherent Slough Adherent Slough -Structure Exposed N/A -Texture (Danielle-wound Skin Appearance) Assessed, Assessed Scarring -Moisture (Danielle-wound Skin Appearance) Assessed Assessed -Color (Danielle-wound Skin Appearance) Assessed Assessed -Temperature (Danielle-wound Skin No Abnormality No Abnormality Appearance) (Pt Warm) (Pt Warm) -Tenderness on Palpation (Danielle-wound No No Skin Appearance) -Ulcer Cleansing Wound Cleanser Soap and Water -Foul Odor after Cleansing No No -Anesthetic Used 5% Lidocaine 5% Lidocaine Gel Gel WC - Nurse 2 - General Ulcer CM Notes Start: 04/26/24 08:26 Freq: Status: Active Protocol: Activity Type Activity Date Activity User E-sign Co-sign Detail Recorded Client Recorded Date Recorded By Document 04/28/24 08:43 [id number] 04/28/24 08:45 Document 05/05/24 09:04 [facility] [id number] 05/05/24 09:10 [facility] 04/28/24 05/05/24 08:43 09:04 Wound Center Nurse 2 #1 LT DORSAL FOOT -Time 08:44 09:04 -Correct Patient Yes Yes -Correct Side, Site, Position Yes Yes -Correct Procedure Yes Yes -Procedure Performed Yes Yes -Type of Procedure Debridement Debridement -Clinical Debridement Subcutaneous Subcutaneous -Tissue Removed Subcutaneous Subcutaneous -Post Debridement (cm) - Length 5.8 5.7 -Post Debridement (cm) - Width 2.6 2.2 -Post Debridement (cm) - Depth 0.1 0.1 -Total Square (Post) (cm) 15.08 12.54 -Area of Debridement (cm) - Length 5.8 5.7 -Area of Debridement (cm) - Width 2.6 2.2 -Total Square (Area) (cm) 15.08 12.54 -Tunneling No No -Undermining/Tunneling No No -Circular Undermining No No -Wound/Ulcer Outcome Not Healed Not Healed -Ulcer Cleansing Rinsed/ Rinsed/ Irrigated with Irrigated with Saline Saline -Foul Odor after Cleansing No No -Bioengineered Tissue No Yes -Type of Bioengineered Tissue Epifix Mesh -Expiration Date 10/22/28 -Product Lot Number [id number] -Percent Used 100 -Lot number of Saline Used [id number] -Bleeding Controlled with Pressure Pressure -Treatment Response Procedure Procedure Tolerated Well Tolerated Well -Offloading No -Debridement - Subq, 1st 20sq cm Yes No -Apply Skin Sub - 1st 25 sq cm - Feet 1 -Epifix Mesh (per sq cm) 11 Pain Scale: 0-10 Numeric Is Patient Pain Free? Yes Yes - Nurse 3 - General Ulcer D/C NN Start: 04/26/24 08:26 Freq: Status: Active Protocol: Activity Type Activity Date Activity User E-sign Co-sign Detail Recorded Client Recorded Date Recorded By Document 04/26/24 08:26 BM [id number] 04/26/24 08:30 BMF Document 04/28/24 09:01 RB [id number] 04/28/24 09:02 RB Document 05/05/24 09:20 KW [id number] 05/05/24 09:21 KW 04/26/24 04/28/24 05/05/24 08:26 09:01 09:20 Vital Signs Temperature (97.8 F-99.1 F) 98.5 F Temperature Source Temporal Pulse Rate (60-100) 76 Pulse Location Monitor Respiratory Rate (12-18) 16 Respiratory rate source Observation Oxygen Delivery Method Room Air Blood Pressure (90/60-120/80) 162/65 H Blood Pressure Mean (mm Hg) 97 Source Monitor Position Sitting Blood Pressure Location Left Arm Pain Scale: 0-10 Numeric Is Patient Pain Free? Yes Yes Yes Wound Care Center Nurse 3 #1 LT DORSAL FOOT -Ulcer Cleansing Soap and Water -Foul Odor after Cleansing No -Primary Dressing Applied Silvercel Fibracol Plus 4x4 -Other Dressing abd ABD -Primary Dressing Covered/Secured with Dry Gauze & Dry Gauze & Dry Gauze & Roll Gauze, Roll Gauze, Roll Gauze, Secured with Secured with Secured with Tape Tape Tape -Fibracol Plus 4x4 2 -Silvercel 1 -Wound Comment(s) periwound ^ red , irritated and tender. CM assessed. hold vac reapplication at this time. apply silvercel , dry drsg until next visit on friday. CM will update Left -Compression Wrap Jaxson Wrap Jaxson Wrap -Other jaxson X2 Treatment Response Procedure Procedure Tolerated Well Tolerated Well WC - Visit Discharge Discharge Condition Stable Stable Stable Ambulatory Status Ambulatory, Crutches Ambulatory, Crutches Crutches Transportation Private Auto Private Auto Private Auto Accompanied by Medication Reconcilliation completed & No No provided to patient/care provider Clinical Summary of Care Provided Yes Yes Assessment/Plan Assessment/Plan (1) Nondisplaced fracture of second metatarsal bone, left foot, initial encounter for closed fracture: CODE(S): S92.325A - Nondisplaced fracture of second metatarsal bone, left foot, initial encounter for closed fracture PLAN: Patient was examined and evaluated. All findings were discussed with the patient. All questions were answered to the patient's satisfaction. Excisional debridement down to and including subcutaneous tissue with a number 5 mm dermal curette to the dorsal left foot wound without incident. Predebridement measurement was 5.5 x 2.0 x 0.1 cm. Postdebridement measurement is 5.7 x 2.2 x 0.1 cm. EpiFix 4.0 x 4.5 cm was applied to the left full-thickness ulceration with 100% use. First application. The graft site was free and clear of any infection. The wound/skin graft substitute was dressed with nonadherent bandage secured in place with Steri-Strips followed by bolster dressing as well as a double layer Tubigrip. Follow-up at the wound care center with Dr. gAuirre in 1 week.
--- NOTE | 2024-05-05 15:55 | WC ---
PHOTO 05/05/24 LEFT FOOT
[2024-05-12 09:17] VITALS: BP 167/89; PULSE 80; RESP 16; TEMP 36.7; BMI 30.5
--- NOTE | 2024-05-12 11:40 | PN.PCM_ITS ---
History of Present Illness Date of Service: 05/12/24 Chief Complaint: Left foot wound History of Wound: Left foot wound secondary to a work-related injury Progress of Wound: Full-thickness wound left foot stable no sign of infection. Subjective Subjective Mr. Orantes is a 68-year-old male presented wound care center today for follow-up evaluation of left foot dorsal wound secondary to a work-related injury. Patient has been compliant with leaving his skin graft and dressing clean dry and intact. Denies trauma. Denies constitutional symptoms. No other pedal complaints at this time. Objective Data Objective Data Vital Signs: Vital Signs Temp Pulse Resp BP O2 Del Method 98.1 F 80 16 167/89 H Room Air 05/12/24 09:17 05/12/24 09:17 05/12/24 09:17 05/12/24 09:17 05/12/24 09:17 Oxygen Delivery Method Room Air Weight: 88.451 kg Body Mass Index (BMI) 30.5 Physical Exam Narrative Vascular: DP and PT pulse are palpable to the left lower extremity. CFT is brisk. Skin temperature great is warm to warm from proximal ankles to distal digits bilateral. Evidence of erythema secondary to irritation from the Adaptic. Neurological: Light touch intact. Patient does respond to painful stimuli. Dermatological: Full-thickness wound to the dorsal aspect of the left foot measuring 4.1 x 1.5 x 0.1 cm. Wound base is 100% granular nature. No drainage. No probe to bone. No sign of infection. Excisional debridement down to and including subcutaneous tissue with a number 5 mm dermal curette to the dorsal left foot wound without incident. Predebridement measurement was 3.9 x 4.9 x 0.1 cm. Postdebridement measurement is 4.1 x 5.1 x 0.1 cm. EpiFix mesh 4.0 x 4.5 cm was applied to the left full-thickness ulceration with 100% use. Second application. The graft site was free and clear of any infection. The wound/skin graft substitute was dressed with nonadherent bandage secured in place with Steri-Strips followed by bolster dressing as well as a double layer Tubigrip. Musculoskeletal: Muscle strength is 5 out of 5 in all quadrants left lower extremity. No pain on palpation to the full-thickness wound to the dorsal aspect of the left foot. No pain with calf pressure. Debridement Note Debridement Note Debridement Free Text: Excisional debridement down to and including subcutaneous tissue with a number 5 mm dermal curette to the dorsal left foot wound without incident. Predebridement measurement was 3.9 x 4.9 x 0.1 cm. Postdebridement measurement is 4.1 x 5.1 x 0.1 cm. EpiFix mesh 4.0 x 4.5 cm was applied to the left full-thickness ulceration with 100% use. Second application. The graft site was free and clear of any infection. The wound/skin graft substitute was dressed with nonadherent bandage secured in place with Steri-Strips followed by bolster dressing as well as a double layer Tubigrip. Post-Debridement Measurements and Additional Note: Post-Debridement Measurements/Treatment - Nurse 1 - General Ulcer Assessment Start: 04/26/24 08:26 Freq: Status: Active Protocol: JH.KIKE Activity Type Activity Date Activity User E-sign Co-sign Detail Recorded Client Recorded Date Recorded By Document 04/26/24 08:26 BM [id number] 04/26/24 08:30 BMF Document 04/28/24 08:12 RB [id number] 04/28/24 08:15 RB Document 05/05/24 08:40 ML [id number] 05/05/24 08:51 ML Document 05/12/24 09:17 GM [id number] 05/12/24 09:19 GM 04/26/24 04/28/24 05/05/24 08:26 08:12 08:40 - Today's Visit Information Type of service Nurse-only Follow-up Visit Follow-up Visit Visit (Physician/DATA MODELING SPECIALIST (Physician/DATA MODELING SPECIALIST ) ) Arrival Mode Ambulatory, Ambulatory Ambulatory Crutches Transfer Assistance None None None Accompanied by Patient Identification Verified (Name & Yes Yes Yes ) Patient Requires Transmission-Based No No No Precautions Height and Weight Body Mass Index (BMI) 30.5 30.5 30.5 BMI Classification Obese Obese Obese Vital Signs Temperature (97.8 F-99.1 F) 98.5 F 97 F L 98.3 F Temperature Source Temporal Temporal Temporal Pulse Rate (60-100) 76 78 77 Pulse Location Monitor Monitor Monitor Respiratory Rate (12-18) 16 18 15 Respiratory rate source Observation Observation Observation Oxygen Delivery Method Room Air Blood Pressure (90/60-120/80) 162/65 H 152/92 H 133/90 H Blood Pressure Mean (mm Hg) 97 112 104 Source Monitor Monitor Monitor Position Sitting Semi-Fowlers Sitting Blood Pressure Location Left Arm Left Arm Right Arm History Since Last Visit- (Skip if this is Patient's initial visit) Have you changed medications since your No No No last visit? Any new allergies or adverse reactions No No No Had a fall/change in ADL's that may No No No increase risk of falls Signs or symptoms of abuse and/or No No No neglect since last visit Have you been in the hospital since your No No No last visit? Has dressing in place as prescribed Yes Yes Yes Has compression in place as prescribed N/A Yes N/A Has offloadiing in place as prescribed Yes N/A Yes Experienced any changes in pain level or No No No management Left Footwear Surgical Shoe with pressure relief insole Other Footwear boot opn the right Pain Scale: 0-10 Numeric Is Patient Pain Free? Yes Yes Yes 05/12/24 09:17 WC - Today's Visit Information Type of service Follow-up Visit (Physician/DATA MODELING SPECIALIST ) Arrival Mode Ambulatory Transfer Assistance Accompanied by Patient Identification Verified (Name & Yes ) Patient Requires Transmission-Based No Precautions Height and Weight Body Mass Index (BMI) 30.5 BMI Classification Obese Vital Signs Temperature (97.8 F-99.1 F) 98.1 F Temperature Source Temporal Pulse Rate (60-100) 80 Pulse Location Monitor Respiratory Rate (12-18) 16 Respiratory rate source Observation Oxygen Delivery Method Room Air Blood Pressure (90/60-120/80) 167/89 H Blood Pressure Mean (mm Hg) 115 Source Monitor Position Sitting Blood Pressure Location Right Arm History Since Last Visit- (Skip if this is Patient's initial visit) Have you changed medications since your No last visit? Any new allergies or adverse reactions No Had a fall/change in ADL's that may No increase risk of falls Signs or symptoms of abuse and/or No neglect since last visit Have you been in the hospital since your No last visit? Has dressing in place as prescribed Yes Has compression in place as prescribed N/A Has offloadiing in place as prescribed Yes Experienced any changes in pain level or No management Left Footwear Removable Cast Walker/Walking Boot Other Footwear Pain Scale: 0-10 Numeric Is Patient Pain Free? Yes WC - Nurse 1 - General Ulcer Measurement Start: 04/26/24 08:26 Freq: Status: Active Protocol: Activity Type Activity Date Activity User E-sign Co-sign Detail Recorded Client Recorded Date Recorded By Document 04/28/24 08:12 RB [id number] 04/28/24 08:15 RB Document 05/05/24 08:40 ML [id number] 05/05/24 08:51 ML Document 05/12/24 09:17 GM [id number] 05/12/24 09:19 GM 04/28/24 05/05/24 05/12/24 08:12 08:40 09:17 Wound Center Nurse 1 #1 LT DORSAL FOOT -Combined with other wound No -Current Size (cm) - Length 4.2 5.2 3.5 -Current Size (cm) - Width 3.4 3 1.5 -Current Size (cm) - Depth 0.1 0.1 0.1 -Total Square Cm 14.28 15.6 5.25 -Date of Last Picture (Recall this 05/12/24 field) -Photo Taken Yes Yes Yes -Epithelialization Small 1-33% -Tunneling No No -Undermining/Tunneling No No -Circular Undermining No No -Exudate Amt Medium Medium Large -Exudate Type Serosanguineous Serosanguineous Yellow/Green -Wound Margin Distinct, Distinct, Distinct, Outline Outline Outline Attached Attached Attached -Granulation Amt Medium (34-66%) Medium (34-66%) Large (67-100%) -Granulation Quality [place] Red -Slough/Fibrin Yes Yes No -Necrosis Amt Medium (34-66%) Medium (34-66%) None Present (0 %) -Necrotic Tissue Type Adherent Slough Adherent Slough -Structure Exposed N/A -Texture (Danielle-wound Skin Appearance) Assessed, Assessed Assessed Scarring -Moisture (Danielle-wound Skin Appearance) Assessed Assessed Assessed -Color (Danielle-wound Skin Appearance) Assessed Assessed Assessed -Temperature (Danielle-wound Skin No Abnormality No Abnormality No Abnormality Appearance) (Pt Warm) (Pt Warm) (Pt Warm) -Tenderness on Palpation (Danielle-wound No No No Skin Appearance) -Ulcer Cleansing Wound Cleanser Soap and Water Soap and Water -Foul Odor after Cleansing No No No -Anesthetic Used 5% Lidocaine 5% Lidocaine 5% Lidocaine Gel Gel Gel WC - Nurse 2 - General Ulcer CM Notes Start: 04/26/24 08:26 Freq: Status: Active Protocol: Activity Type Activity Date Activity User E-sign Co-sign Detail Recorded Client Recorded Date Recorded By Document 04/28/24 08:43 [id number] 04/28/24 08:45 Document 05/05/24 09:04 [facility] [id number] 05/05/24 09:10 [facility] Document 05/12/24 09:40 [id number] 05/12/24 09:42 JF 04/28/24 05/05/24 05/12/24 08:43 09:04 09:40 Wound Center Nurse 2 #1 LT DORSAL FOOT -Time 08:44 09:04 09:40 -Correct Patient Yes Yes Yes -Correct Side, Site, Position Yes Yes Yes -Correct Procedure Yes Yes Yes -Procedure Performed Yes Yes Yes -Type of Procedure Debridement Debridement Debridement -Clinical Debridement Subcutaneous Subcutaneous Subcutaneous -Tissue Removed Subcutaneous Subcutaneous Subcutaneous -Post Debridement (cm) - Length 5.8 5.7 4.1 -Post Debridement (cm) - Width 2.6 2.2 1.5 -Post Debridement (cm) - Depth 0.1 0.1 0.1 -Total Square (Post) (cm) 15.08 12.54 6.15 -Area of Debridement (cm) - Length 5.8 5.7 4.1 -Area of Debridement (cm) - Width 2.6 2.2 1.5 -Total Square (Area) (cm) 15.08 12.54 6.15 -Tunneling No No No -Undermining/Tunneling No No No -Circular Undermining No No No -Wound/Ulcer Outcome Not Healed Not Healed Not Healed -Ulcer Cleansing Rinsed/ Rinsed/ Rinsed/ Irrigated with Irrigated with Irrigated with Saline Saline Saline -Foul Odor after Cleansing No No No -Bioengineered Tissue No Yes Yes -Type of Bioengineered Tissue Epifix Mesh Epifix Mesh -Expiration Date 10/22/28 10/22/28 -Product Lot Number [id number] -Percent Used 100 100 -Lot number of Saline Used [id number] -Bleeding Controlled with Pressure Pressure Pressure -Treatment Response Procedure Procedure Procedure Tolerated Well Tolerated Well Tolerated Well -Offloading No No -Debridement - Subq, 1st 20sq cm Yes No No -Apply Skin Sub - 1st 25 sq cm - Feet 1 1 -Epifix Mesh (per sq cm) 11 11 Pain Scale: 0-10 Numeric Is Patient Pain Free? Yes Yes Yes - Nurse 3 - General Ulcer D/C NN Start: 04/26/24 08:26 Freq: Status: Active Protocol: Activity Type Activity Date Activity User E-sign Co-sign Detail Recorded Client Recorded Date Recorded By Document 04/26/24 08:26 BMF [id number] 04/26/24 08:30 BMF Document 04/28/24 09:01 RB [id number] 04/28/24 09:02 RB Document 05/05/24 09:20 KW [id number] 05/05/24 09:21 KW Document 05/12/24 09:56 KW [id number] 05/12/24 09:56 KW 04/26/24 04/28/24 05/05/24 08:26 09:01 09:20 Vital Signs Temperature (97.8 F-99.1 F) 98.5 F Temperature Source Temporal Pulse Rate (60-100) 76 Pulse Location Monitor Respiratory Rate (12-18) 16 Respiratory rate source Observation Oxygen Delivery Method Room Air Blood Pressure (90/60-120/80) 162/65 H Blood Pressure Mean (mm Hg) 97 Source Monitor Position Sitting Blood Pressure Location Left Arm Pain Scale: 0-10 Numeric Is Patient Pain Free? Yes Yes Yes Wound Care Center Nurse 3 #1 LT DORSAL FOOT -Ulcer Cleansing Soap and Water -Foul Odor after Cleansing No -Primary Dressing Applied Silvercel Fibracol Plus 4x4 -Other Dressing abd ABD -Primary Dressing Covered/Secured with Dry Gauze & Dry Gauze & Dry Gauze & Roll Gauze, Roll Gauze, Roll Gauze, Secured with Secured with Secured with Tape Tape Tape -Fibracol Plus 4x4 2 -Silvercel 1 -Wound Comment(s) periwound ^ red , irritated and tender. CM assessed. hold vac reapplication at this time. apply silvercel , dry drsg until next visit on friday. CM will update dr. Left -Lotion applied to leg before compression wrap -Compression Wrap Jaxson Wrap Jaxson Wrap -Other jaxson X2 Treatment Response Procedure Procedure Tolerated Well Tolerated Well WC - Visit Discharge Discharge Condition Stable Stable Stable Ambulatory Status Ambulatory, Crutches Ambulatory, Crutches Crutches Transportation Private Auto Private Auto Private Auto Accompanied by Medication Reconcilliation completed & No No provided to patient/care provider Clinical Summary of Care Provided Yes Yes 05/12/24 09:56 Vital Signs Temperature (97.8 F-99.1 F) Temperature Source Pulse Rate (60-100) Pulse Location Respiratory Rate (12-18) Respiratory rate source Oxygen Delivery Method Blood Pressure (90/60-120/80) Blood Pressure Mean (mm Hg) Source Position Blood Pressure Location Pain Scale: 0-10 Numeric Is Patient Pain Free? Yes Wound Care Center Nurse 3 #1 LT DORSAL FOOT -Ulcer Cleansing -Foul Odor after Cleansing -Primary Dressing Applied -Other Dressing -Primary Dressing Covered/Secured with Dry Gauze & Roll Gauze, Secured with Tape -Fibracol Plus 4x4 -Silvercel -Wound Comment(s) Left -Lotion applied to leg before Yes compression wrap -Compression Wrap Jaxson Wrap -Other Treatment Response WC - Visit Discharge Discharge Condition Stable Ambulatory Status Ambulatory, Crutches Transportation Private Auto Accompanied by Medication Reconcilliation completed & No provided to patient/care provider Clinical Summary of Care Provided Yes Assessment/Plan Assessment/Plan (1) Nondisplaced fracture of second metatarsal bone, left foot, initial encounter for closed fracture: CODE(S): S92.325A - Nondisplaced fracture of second metatarsal bone, left foot, initial encounter for closed fracture PLAN: Patient was examined and evaluated. All findings were discussed with the patient. All questions were answered to the patient's satisfaction. Excisional debridement down to and including subcutaneous tissue with a number 5 mm dermal curette to the dorsal left foot wound without incident. Predebridement measurement was 3.9 x 4.9 x 0.1 cm. Postdebridement measurement is 4.1 x 5.1 x 0.1 cm. EpiFix mesh 4.0 x 4.5 cm was applied to the left full-thickness ulceration with 100% use. Second application. The graft site was free and clear of any infection. The wound/skin graft substitute was dressed with nonadherent bandage secured in place with Steri-Strips followed by bolster dressing as well as a double layer Tubigrip. Follow-up at the wound care center with Dr. Aguirre in 1 week.
--- NOTE | 2024-05-12 14:44 | WC ---
PHOTO 05/12/24 Left Foot
[2024-05-19 09:12] VITALS: BP 175/78; PULSE 89; RESP 18; TEMP 36.8; BMI 30.5
--- NOTE | 2024-05-19 11:53 | PCM.WC.PN ---
History of Present Illness Date of Service: 05/26/24 Chief Complaint: Left foot wound History of Wound: Left foot wound secondary to a work-related injury Progress of Wound: Full-thickness wound left foot stable no sign of infection. Subjective Subjective Mr. Orantes is a 68-year-old male presenting to wound care center today for follow-up evaluation of full-thickness wound and skin graft substitute application to left dorsal foot. Patient sustained a work injury and has been following with wound care center for treatment of his full-thickness wound to the left foot. He has left his dressing clean dry and intact. He has been partial weightbearing in a cam boot. He is grateful for his care. Denies any new onset of trauma. Denies constitutional symptoms. Other pedal complaints at this time. Objective Data Objective Data Vital Signs: Vital Signs Temp Pulse Resp BP O2 Del Method 98.3 F 89 18 175/78 H Room Air 05/19/24 09:12 05/19/24 09:12 05/19/24 09:12 05/19/24 09:12 05/12/24 09:17 Oxygen Delivery Method Room Air Weight: 88.451 kg Body Mass Index (BMI) 30.5 Physical Exam Narrative Vascular: DP and PT pulse are palpable to the left lower extremity. CFT is brisk. Skin temperature great is warm to warm from proximal ankles to distal digits bilateral. Evidence of erythema secondary to irritation from the Adaptic. Neurological: Light touch intact. Patient does respond to painful stimuli. Dermatological: Full-thickness wound to the dorsal aspect of the left foot measuring 3.3 x 0.9 x 0.1 cm. Wound base is 100% granular nature. No drainage. No probe to bone. No sign of infection. Excisional debridement down to and including subcutaneous tissue with a number 5 mm dermal curette to the dorsal left foot wound without incident. Predebridement measurement was 3.1 x 0.7 x 0.1 cm.. Postdebridement measurement is 3.3 x 0.9 x 0.1 cm. EpiFix 2.0 x 2.0 cm was applied to the left full-thickness ulceration with 100% use. Third application. The graft site was free and clear of any infection. The wound/skin graft substitute was dressed with nonadherent bandage secured in place with Steri-Strips followed by bolster dressing as well as a double layer Tubigrip. Musculoskeletal: Muscle strength is 5 out of 5 in all quadrants left lower extremity. No pain on palpation to the full-thickness wound to the dorsal aspect of the left foot. No pain with calf pressure. Debridement Note Debridement Note Debridement Free Text: Excisional debridement down to and including subcutaneous tissue with a number 5 mm dermal curette to the dorsal left foot wound without incident. Predebridement measurement was 3.1 x 0.7 x 0.1 cm.. Postdebridement measurement is 3.3 x 0.9 x 0.1 cm. EpiFix 2.0 x 2.0 cm was applied to the left full-thickness ulceration with 100% use. Third application. The graft site was free and clear of any infection. The wound/skin graft substitute was dressed with nonadherent bandage secured in place with Steri-Strips followed by bolster dressing as well as a double layer Tubigrip. Post-Debridement Measurements and Additional Note: Post-Debridement Measurements/Treatment - Nurse 1 - General Ulcer Assessment Start: 04/26/24 08:26 Freq: Status: Active Protocol: CARLOS ALBERTO Activity Type Activity Date Activity User E-sign Co-sign Detail Recorded Client Recorded Date Recorded By Document 04/26/24 08:26 [facility] [id number] 04/26/24 08:30 BMF Document 04/28/24 08:12 RB [id number] 04/28/24 08:15 RB Document 05/05/24 08:40 ML [id number] 05/05/24 08:51 ML Document 05/12/24 09:17 GM [id number] 05/12/24 09:19 GM Document 05/19/24 09:12 RB [id number] 05/19/24 09:14 RB 04/26/24 04/28/24 05/05/24 08:26 08:12 08:40 - Today's Visit Information Type of service Nurse-only Follow-up Visit Follow-up Visit Visit (Physician/JEWISH HISTORY PROFESSOR (Physician/JEWISH HISTORY PROFESSOR ) ) Arrival Mode Ambulatory, Ambulatory Ambulatory Crutches Transfer Assistance None None None Accompanied by Patient Identification Verified (Name & Yes Yes Yes ) Patient Requires Transmission-Based No No No Precautions Height and Weight Body Mass Index (BMI) 30.5 30.5 30.5 BMI Classification Obese Obese Obese Vital Signs Temperature (97.8 F-99.1 F) 98.5 F 97 F L 98.3 F Temperature Source Temporal Temporal Temporal Pulse Rate (60-100) 76 78 77 Pulse Location Monitor Monitor Monitor Respiratory Rate (12-18) 16 18 15 Respiratory rate source Observation Observation Observation Oxygen Delivery Method Room Air Blood Pressure (90/60-120/80) 162/65 H 152/92 H 133/90 H Blood Pressure Mean (mm Hg) 97 112 104 Source Monitor Monitor Monitor Position Sitting Semi-Fowlers Sitting Blood Pressure Location Left Arm Left Arm Right Arm History Since Last Visit- (Skip if this is Patient's initial visit) Have you changed medications since your No No No last visit? Any new allergies or adverse reactions No No No Had a fall/change in ADL's that may No No No increase risk of falls Signs or symptoms of abuse and/or No No No neglect since last visit Have you been in the hospital since your No No No last visit? Has dressing in place as prescribed Yes Yes Yes Has compression in place as prescribed N/A Yes N/A Has offloadiing in place as prescribed Yes N/A Yes Experienced any changes in pain level or No No No management Left Footwear Surgical Shoe with pressure relief insole Right Footwear Other Footwear boot opn the right Pain Scale: 0-10 Numeric Is Patient Pain Free? Yes Yes Yes 05/12/24 05/19/24 09:17 09:12 WC - Today's Visit Information Type of service Follow-up Visit Follow-up Visit (Physician/JEWISH HISTORY PROFESSOR (Physician/JEWISH HISTORY PROFESSOR ) ) Arrival Mode Ambulatory Ambulatory Transfer Assistance None Accompanied by Patient Identification Verified (Name & Yes Yes ) Patient Requires Transmission-Based No No Precautions Height and Weight Body Mass Index (BMI) 30.5 30.5 BMI Classification Obese Obese Vital Signs Temperature (97.8 F-99.1 F) 98.1 F 98.3 F Temperature Source Temporal Temporal Pulse Rate (60-100) 80 89 Pulse Location Monitor Monitor Respiratory Rate (12-18) 16 18 Respiratory rate source Observation Observation Oxygen Delivery Method Room Air Blood Pressure (90/60-120/80) 167/89 H 175/78 H Blood Pressure Mean (mm Hg) 115 110 Source Monitor Monitor Position Sitting Semi-Fowlers Blood Pressure Location Right Arm Left Arm History Since Last Visit- (Skip if this is Patient's initial visit) Have you changed medications since your No No last visit? Any new allergies or adverse reactions No No Had a fall/change in ADL's that may No No increase risk of falls Signs or symptoms of abuse and/or No No neglect since last visit Have you been in the hospital since your No No last visit? Has dressing in place as prescribed Yes Yes Has compression in place as prescribed N/A No Has offloadiing in place as prescribed Yes Yes Experienced any changes in pain level or No No management Left Footwear Removable Cast Multipodus Walker/Walking Splint/Boot Boot Right Footwear Regular Shoe Other Footwear Pain Scale: 0-10 Numeric Is Patient Pain Free? Yes Yes WC - Nurse 1 - General Ulcer Measurement Start: 04/26/24 08:26 Freq: Status: Active Protocol: Activity Type Activity Date Activity User E-sign Co-sign Detail Recorded Client Recorded Date Recorded By Document 04/28/24 08:12 RB [id number] 04/28/24 08:15 RB Document 05/05/24 08:40 ML [id number] 05/05/24 08:51 ML Document 05/12/24 09:17 GM [id number] 05/12/24 09:19 GM Document 05/19/24 09:12 RB [id number] 05/19/24 09:14 RB 04/28/24 05/05/24 05/12/24 08:12 08:40 09:17 Wound Center Nurse 1 #1 LT DORSAL FOOT -Combined with other wound No -Current Size (cm) - Length 4.2 5.2 3.5 -Current Size (cm) - Width 3.4 3 1.5 -Current Size (cm) - Depth 0.1 0.1 0.1 -Total Square Cm 14.28 15.6 5.25 -Date of Last Picture (Recall this 05/12/24 field) -Photo Taken Yes Yes Yes -Epithelialization Small 1-33% -Tunneling No No -Undermining/Tunneling No No -Circular Undermining No No -Exudate Amt Medium Medium Large -Exudate Type Serosanguineous Serosanguineous Yellow/Green -Wound Margin Distinct, Distinct, Distinct, Outline Outline Outline Attached Attached Attached -Granulation Amt Medium (34-66%) Medium (34-66%) Large (67-100%) -Granulation Quality [place] Red -Slough/Fibrin Yes Yes No -Necrosis Amt Medium (34-66%) Medium (34-66%) None Present (0 %) -Necrotic Tissue Type Adherent Slough Adherent Slough -Structure Exposed N/A -Texture (Danielle-wound Skin Appearance) Assessed, Assessed Assessed Scarring -Moisture (Danielle-wound Skin Appearance) Assessed Assessed Assessed -Color (Danielle-wound Skin Appearance) Assessed Assessed Assessed -Temperature (Danielle-wound Skin No Abnormality No Abnormality No Abnormality Appearance) (Pt Warm) (Pt Warm) (Pt Warm) -Tenderness on Palpation (Danielle-wound No No No Skin Appearance) -Ulcer Cleansing Wound Cleanser Soap and Water Soap and Water -Foul Odor after Cleansing No No No -Anesthetic Used 5% Lidocaine 5% Lidocaine 5% Lidocaine Gel Gel Gel 05/19/24 09:12 Wound Center Nurse 1 #1 LT DORSAL FOOT -Combined with other wound No -Current Size (cm) - Length 2.9 -Current Size (cm) - Width 1.3 -Current Size (cm) - Depth 0.1 -Total Square Cm 3.77 -Date of Last Picture (Recall this field) -Photo Taken Yes -Epithelialization -Tunneling No -Undermining/Tunneling No -Circular Undermining No -Exudate Amt Medium -Exudate Type Serosanguineous -Wound Margin Distinct, Outline Attached -Granulation Amt Medium (34-66%) -Granulation Quality [place] -Slough/Fibrin Yes -Necrosis Amt Medium (34-66%) -Necrotic Tissue Type Adherent Slough -Structure Exposed N/A -Texture (Danielle-wound Skin Appearance) Scarring -Moisture (Danielle-wound Skin Appearance) Assessed -Color (Danielle-wound Skin Appearance) Assessed -Temperature (Danielle-wound Skin No Abnormality Appearance) (Pt Warm) -Tenderness on Palpation (Danielle-wound No Skin Appearance) -Ulcer Cleansing Wound Cleanser -Foul Odor after Cleansing No -Anesthetic Used 5% Lidocaine Gel WC - Nurse 2 - General Ulcer CM Notes Start: 04/26/24 08:26 Freq: Status: Active Protocol: Activity Type Activity Date Activity User E-sign Co-sign Detail Recorded Client Recorded Date Recorded By Document 04/28/24 08:43 [id number] 04/28/24 08:45 Document 05/05/24 09:04 BM [id number] 05/05/24 09:10 [facility] Document 05/12/24 09:40 [id number] 05/12/24 09:42 JF Document 05/19/24 09:26 [id number] 05/19/24 09:31 JF 04/28/24 05/05/24 05/12/24 08:43 09:04 09:40 Wound Center Nurse 2 #1 LT DORSAL FOOT -Time 08:44 09:04 09:40 -Correct Patient Yes Yes Yes -Correct Side, Site, Position Yes Yes Yes -Correct Procedure Yes Yes Yes -Procedure Performed Yes Yes Yes -Type of Procedure Debridement Debridement Debridement -Clinical Debridement Subcutaneous Subcutaneous Subcutaneous -Tissue Removed Subcutaneous Subcutaneous Subcutaneous -Post Debridement (cm) - Length 5.8 5.7 4.1 -Post Debridement (cm) - Width 2.6 2.2 1.5 -Post Debridement (cm) - Depth 0.1 0.1 0.1 -Total Square (Post) (cm) 15.08 12.54 6.15 -Area of Debridement (cm) - Length 5.8 5.7 4.1 -Area of Debridement (cm) - Width 2.6 2.2 1.5 -Total Square (Area) (cm) 15.08 12.54 6.15 -Tunneling No No No -Undermining/Tunneling No No No -Circular Undermining No No No -Wound/Ulcer Outcome Not Healed Not Healed Not Healed -Ulcer Cleansing Rinsed/ Rinsed/ Rinsed/ Irrigated with Irrigated with Irrigated with Saline Saline Saline -Foul Odor after Cleansing No No No -Bioengineered Tissue No Yes Yes -Type of Bioengineered Tissue Epifix Mesh Epifix Mesh -Expiration Date 10/22/28 10/22/28 -Product Lot Number [id number] -Percent Used 100 100 -Lot number of Saline Used [id number] -Bleeding Controlled with Pressure Pressure Pressure -Treatment Response Procedure Procedure Procedure Tolerated Well Tolerated Well Tolerated Well -Offloading No No -Type of Offloading -Debridement - Subq, 1st 20sq cm Yes No No -Apply Skin Sub - 1st 25 sq cm - Feet 1 1 -Epifix (per sq cm) -Epifix Mesh (per sq cm) 11 11 Pain Scale: 0-10 Numeric Is Patient Pain Free? Yes Yes Yes 05/19/24 09:26 Wound Center Nurse 2 #1 LT DORSAL FOOT -Time 09:26 -Correct Patient Yes -Correct Side, Site, Position Yes -Correct Procedure Yes -Procedure Performed Yes -Type of Procedure Debridement -Clinical Debridement Subcutaneous -Tissue Removed Subcutaneous -Post Debridement (cm) - Length 3.3 -Post Debridement (cm) - Width 0.9 -Post Debridement (cm) - Depth 0.1 -Total Square (Post) (cm) 2.97 -Area of Debridement (cm) - Length 3.3 -Area of Debridement (cm) - Width 0.9 -Total Square (Area) (cm) 2.97 -Tunneling No -Undermining/Tunneling No -Circular Undermining No -Wound/Ulcer Outcome Not Healed -Ulcer Cleansing Rinsed/ Irrigated with Saline -Foul Odor after Cleansing No -Bioengineered Tissue Yes -Type of Bioengineered Tissue Epifix -Expiration Date 12/22/28 -Product Lot Number [id number] -Percent Used 100 -Lot number of Saline Used [id number] -Bleeding Controlled with Pressure -Treatment Response Procedure Tolerated Well -Offloading Yes -Type of Offloading Camwalker -Debridement - Subq, 1st 20sq cm No -Apply Skin Sub - 1st 25 sq cm - Feet 1 -Epifix (per sq cm) 4 -Epifix Mesh (per sq cm) Pain Scale: 0-10 Numeric Is Patient Pain Free? Yes - Nurse 3 - General Ulcer D/C NN Start: 04/26/24 08:26 Freq: Status: Active Protocol: Activity Type Activity Date Activity User E-sign Co-sign Detail Recorded Client Recorded Date Recorded By Document 04/26/24 08:26 BMF [id number] 04/26/24 08:30 BMF Document 04/28/24 09:01 RB [id number] 04/28/24 09:02 RB Document 05/05/24 09:20 KW [id number] 05/05/24 09:21 KW Document 05/12/24 09:56 KW [id number] 05/12/24 09:56 KW Document 05/19/24 09:47 GM [id number] 05/19/24 09:48 GM 04/26/24 04/28/24 05/05/24 08:26 09:01 09:20 Vital Signs Temperature (97.8 F-99.1 F) 98.5 F Temperature Source Temporal Pulse Rate (60-100) 76 Pulse Location Monitor Respiratory Rate (12-18) 16 Respiratory rate source Observation Oxygen Delivery Method Room Air Blood Pressure (90/60-120/80) 162/65 H Blood Pressure Mean (mm Hg) 97 Source Monitor Position Sitting Blood Pressure Location Left Arm Pain Scale: 0-10 Numeric Is Patient Pain Free? Yes Yes Yes Wound Care Center Nurse 3 #1 LT DORSAL FOOT -Ulcer Cleansing Soap and Water -Foul Odor after Cleansing No -Primary Dressing Applied Silvercel Fibracol Plus 4x4 -Other Dressing abd ABD -Primary Dressing Covered/Secured with Dry Gauze & Dry Gauze & Dry Gauze & Roll Gauze, Roll Gauze, Roll Gauze, Secured with Secured with Secured with Tape Tape Tape -Fibracol Plus 4x4 2 -Silvercel 1 -Wound Comment(s) periwound ^ red , irritated and tender. CM assessed. hold vac reapplication at this time. apply silvercel , dry drsg until next visit on friday. CM will update dr. Left -Lotion applied to leg before compression wrap -Compression Wrap Jaxson Wrap Jaxson Wrap -Other jaxson X2 Treatment Response Procedure Procedure Tolerated Well Tolerated Well WC - Visit Discharge Discharge Condition Stable Stable Stable Ambulatory Status Ambulatory, Crutches Ambulatory, Crutches Crutches Transportation Private Auto Private Auto Private Auto Accompanied by Medication Reconcilliation completed & No No provided to patient/care provider Clinical Summary of Care Provided Yes Yes #1 LT DORSAL FOOT -Ulcer Cleansing -Foul Odor after Cleansing -Primary Dressing Covered/Secured with Left -Lotion applied to leg before compression wrap -Compression Wrap 05/12/24 05/19/24 09:56 09:47 Vital Signs Temperature (97.8 F-99.1 F) Temperature Source Pulse Rate (60-100) Pulse Location Respiratory Rate (12-18) Respiratory rate source Oxygen Delivery Method Blood Pressure (90/60-120/80) Blood Pressure Mean (mm Hg) Source Position Blood Pressure Location Pain Scale: 0-10 Numeric Is Patient Pain Free? Yes Yes Wound Care Center Nurse 3 #1 LT DORSAL FOOT -Ulcer Cleansing -Foul Odor after Cleansing -Primary Dressing Applied -Other Dressing -Primary Dressing Covered/Secured with Dry Gauze & Roll Gauze, Secured with Tape -Fibracol Plus 4x4 -Silvercel -Wound Comment(s) Left -Lotion applied to leg before Yes compression wrap -Compression Wrap Jaxson Wrap -Other Treatment Response WC - Visit Discharge Discharge Condition Stable Stable Ambulatory Status Ambulatory, Ambulatory, Crutches Crutches Transportation Private Auto Private Auto Accompanied by Medication Reconcilliation completed & No provided to patient/care provider Clinical Summary of Care Provided Yes #1 LT DORSAL FOOT -Ulcer Cleansing Not Cleansed -Foul Odor after Cleansing No -Primary Dressing Covered/Secured with Dry Gauze & Roll Gauze, Secured with Tape Left -Lotion applied to leg before No compression wrap -Compression Wrap Jaxson Wrap Assessment/Plan Assessment/Plan (1) Nondisplaced fracture of second metatarsal bone, left foot, initial encounter for closed fracture: CODE(S): S92.325A - Nondisplaced fracture of second metatarsal bone, left foot, initial encounter for closed fracture PLAN: Patient was examined and evaluated. All findings were discussed with the patient. All questions were answered to the patient's satisfaction. Excisional debridement down to and including subcutaneous tissue with a number 5 mm dermal curette to the dorsal left foot wound without incident. Predebridement measurement was 3.1 x 0.7 x 0.1 cm.. Postdebridement measurement is 3.3 x 0.9 x 0.1 cm. EpiFix 2.0 x 2.0 cm was applied to the left full-thickness ulceration with 100% use. Third application. The graft site was free and clear of any infection. The wound/skin graft substitute was dressed with nonadherent bandage secured in place with Steri-Strips followed by bolster dressing as well as a double layer Tubigrip. Follow-up at the wound care center with Dr. Aguirre in 1 week.
--- NOTE | 2024-05-19 16:13 | WC ---
PHOTO 05/19/24 LEFT FOOT
== END 2024-05-21 23:59 | disposition home or self-care (01) ==
LOC: WC 09:00
PROVIDERS: Visit Provider Podiatrist Foot & Ankle Surgery
DX: S91.302A Unspecified open wound, left foot, initial encounter (principal); S92.325A Nondisplaced fracture of second metatarsal bone, left foot, initial encounter for closed fracture; X58.XXXA Exposure to other specified factors, initial encounter; Y99.0 Civilian activity done for income or pay
CPT/HCPCS: 11042; 15275; 99213; Q4186; G0463

== ENCOUNTER 2024-06-16 08:00 | Outpatient (RCR) | payer OTHER, SELFPAY ==
[2024-05-22 01:22] VITALS: BP 175/78; PULSE 89; RESP 18; TEMP 36.8; BMI 30.5
[2024-05-26 08:18] VITALS: BP 129/82; PULSE 107; RESP 18; TEMP 36.9; BMI 30.5
--- NOTE | 2024-05-26 10:03 | PCM.WC.PN ---
History of Present Illness Date of Service: 05/26/24 Chief Complaint: Left foot wound History of Wound: Left foot wound secondary to a work-related injury Progress of Wound: Stable healing wound dorsal left foot Subjective Subjective Mr. Orantes is a 68-year-old male presented wound care center today follow-up evaluation of full-thickness wound to the dorsal left foot with amniotic skin graft substitute. He is left the dressing clean dry and intact. He has no pain. He is walking pain-free in surgical shoe. Denies any new onset of trauma. Denies constitutional symptoms. No other pedal complaints at this time. Objective Data Objective Data Vital Signs: Vital Signs Temp Pulse Resp BP O2 Del Method 98.5 F 107 H 18 129/82 H Room Air 05/26/24 08:18 05/26/24 08:18 05/26/24 08:18 05/26/24 08:18 05/26/24 08:18 Oxygen Delivery Method Room Air Weight: 88.451 kg Body Mass Index (BMI) 30.5 Physical Exam Narrative Vascular: DP and PT pulse are palpable to the left lower extremity. CFT is brisk. Skin temperature great is warm to warm from proximal ankles to distal digits bilateral. Evidence of erythema secondary to irritation from the Adaptic. Neurological: Light touch intact. Patient does respond to painful stimuli. Dermatological: Full-thickness wound to the dorsal aspect of the left foot measuring 2.6 x 0.8 x 0.1 cm. Wound base is 100% granular nature. No drainage. No probe to bone. No sign of infection. Excisional debridement down to and including subcutaneous tissue with a number 5 mm dermal curette to the dorsal left foot wound without incident. Predebridement measurement was 2.5 x 0.6 x 0.1 cm. Postdebridement measurement is 2.6 x 0.8 x 0.1 cm. EpiFix 2.0 x 2.0 cm was applied to the left full-thickness ulceration with 100% use. Fourth application. The graft site was free and clear of any infection. The wound/skin graft substitute was dressed with nonadherent bandage secured in place with Steri-Strips followed by bolster dressing as well as a double layer Tubigrip. Musculoskeletal: Muscle strength is 5 out of 5 in all quadrants left lower extremity. No pain on palpation to the full-thickness wound to the dorsal aspect of the left foot. No pain with calf pressure. Debridement Note Debridement Note Debridement Free Text: Excisional debridement down to and including subcutaneous tissue with a number 5 mm dermal curette to the dorsal left foot wound without incident. Predebridement measurement was 2.5 x 0.6 x 0.1 cm. Postdebridement measurement is 2.6 x 0.8 x 0.1 cm. EpiFix 2.0 x 2.0 cm was applied to the left full-thickness ulceration with 100% use. Fourth application. The graft site was free and clear of any infection. The wound/skin graft substitute was dressed with nonadherent bandage secured in place with Steri-Strips followed by bolster dressing as well as a double layer Tubigrip. 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 ) Arrival Mode Ambulatory Accompanied by self Patient Identification Verified (Name & Yes ) Safety Precautions Fall Prevention Height and Weight Body Mass Index (BMI) 30.5 BMI Classification Obese Vital Signs Temperature (97.8 F-99.1 F) 98.5 F Temperature Source Temporal Pulse Rate (60-100) 107 H Pulse Location Monitor Respiratory Rate (12-18) 18 Respiratory rate source Observation Oxygen Delivery Method Room Air Blood Pressure (90/60-120/80) 129/82 H Blood Pressure Mean (mm Hg) 97 Source Monitor Position Sitting Blood Pressure Location Left Arm History Since Last Visit- (Skip if this is Patient's initial visit) Has dressing in place as prescribed Yes Has compression in place as prescribed Yes Has offloadiing in place as prescribed Yes Experienced any changes in pain level or Yes management Left Footwear Surgical Shoe with pressure relief insole Right Footwear Regular Shoe Pain Scale: 0-10 Numeric Is Patient Pain Free? Yes - Nurse 1 - General Ulcer Measurement Start: 05/26/24 08:18 Freq: Status: Active Protocol: Activity Type Activity Date Activity User E-sign Co-sign Detail Recorded Client Recorded Date Recorded By Document 05/26/24 08:18 AR [id number] 05/26/24 08:25 AR 05/26/24 08:18 Wound Center Nurse 1 #1 LT DORSAL FOOT -Current Size (cm) - Length 2.2 -Current Size (cm) - Width 0.8 -Current Size (cm) - Depth 0.1 -Total Square Cm 1.76 -Date of Last Picture (Recall this 05/26/24 field) -Photo Taken Yes -Tunneling No -Undermining/Tunneling No -Circular Undermining No -Exudate Amt Medium -Exudate Type Serosanguineous -Wound Margin Flat & Intact -Granulation Amt Medium (34-66%) -Granulation Quality Pale,[place] -Necrosis Amt Small (1-33%) -Necrotic Tissue Type Adherent Slough -Texture (Danielle-wound Skin Appearance) Assessed -Moisture (Danielle-wound Skin Appearance) Assessed -Color (Danielle-wound Skin Appearance) Assessed -Temperature (Danielle-wound Skin No Abnormality Appearance) (Pt Warm) -Tenderness on Palpation (Danielle-wound No Skin Appearance) -Ulcer Cleansing Soap and Water -Foul Odor after Cleansing No -Anesthetic Used 5% Lidocaine Gel Lower Limb Edema Present NA WC - Nurse 2 - General Ulcer CM Notes Start: 05/26/24 08:18 Freq: Status: Active Protocol: Activity Type Activity Date Activity User E-sign Co-sign Detail Recorded Client Recorded Date Recorded By Document 05/26/24 08:48 [id number] 05/26/24 08:49 05/26/24 08:48 Wound Center Nurse 2 #1 LT DORSAL FOOT -Time 08:48 -Correct Patient Yes -Correct Side, Site, Position Yes -Correct Procedure Yes -Procedure Performed Yes -Type of Procedure Debridement -Clinical Debridement Subcutaneous -Tissue Removed Subcutaneous -Post Debridement (cm) - Length 2.6 -Post Debridement (cm) - Width 0.8 -Post Debridement (cm) - Depth 0.1 -Total Square (Post) (cm) 2.08 -Area of Debridement (cm) - Length 2.6 -Area of Debridement (cm) - Width 0.8 -Total Square (Area) (cm) 2.08 -Tunneling No -Undermining/Tunneling No -Circular Undermining No -Wound/Ulcer Outcome Not Healed -Ulcer Cleansing Rinsed/ Irrigated with Saline -Foul Odor after Cleansing No -Bioengineered Tissue Yes -Type of Bioengineered Tissue Epifix -Expiration Date 11/22/28 -Product Lot Number [id number] -Percent Used 100 -Lot number of Saline Used [id number] -Bleeding Controlled with Pressure -Treatment Response Procedure Tolerated Well -Offloading Yes -Type of Offloading Surgical Shoe -Debridement - Subq, 1st 20sq cm No -Apply Skin Sub - 1st 25 sq cm - Feet 1 -Epifix (per sq cm) 4 Pain Scale: 0-10 Numeric Is Patient Pain Free? Yes Assessment/Plan Assessment/Plan (1) Nondisplaced fracture of second metatarsal bone, left foot, initial encounter for closed fracture: CODE(S): S92.325A - Nondisplaced fracture of second metatarsal bone, left foot, initial encounter for closed fracture PLAN: Patient was examined and evaluated. All findings were discussed with the patient. All questions were answered to the patient's satisfaction. Excisional debridement down to and including subcutaneous tissue with a number 5 mm dermal curette to the dorsal left foot wound without incident. Predebridement measurement was 2.5 x 0.6 x 0.1 cm. Postdebridement measurement is 2.6 x 0.8 x 0.1 cm. EpiFix 2.0 x 2.0 cm was applied to the left full-thickness ulceration with 100% use. Fourth application. The graft site was free and clear of any infection. The wound/skin graft substitute was dressed with nonadherent bandage secured in place with Steri-Strips followed by bolster dressing as well as a double layer Tubigrip. Follow-up at the wound care center with Dr. Aguirre in 1 week.
--- NOTE | 2024-05-26 14:49 | WC ---
PHOTO 05/26/24 LEFT DORSAL FOOT
--- NOTE | 2024-05-26 14:51 | WC ---
PHOTO 05/26/24 LEFT DORSAL FOOT
[2024-06-02 08:32] VITALS: BP 181/71; PULSE 80; RESP 16; TEMP 36.2; BMI 30.5
--- NOTE | 2024-06-02 11:21 | PCM.WC.PN ---
History of Present Illness Date of Service: 06/02/24 Chief Complaint: Left foot wound History of Wound: Left foot wound secondary to a work-related injury Progress of Wound: Stable healing wound dorsal left foot Subjective Subjective Mr. Orantes is a 68-year-old male presented wound care center today follow-up evaluation of full-thickness wound to the dorsal left foot with amniotic skin graft substitute. He is left the dressing clean dry and intact. He has no pain. He is walking pain-free in surgical shoe. Denies any new onset of trauma. Denies constitutional symptoms. No other pedal complaints at this time. Objective Data Objective Data Vital Signs: Vital Signs Temp Pulse Resp BP O2 Del Method 97.1 F L 80 16 181/71 H Room Air 06/02/24 08:32 06/02/24 08:32 06/02/24 08:32 06/02/24 08:32 06/02/24 08:32 Oxygen Delivery Method Room Air Weight: 88.451 kg Body Mass Index (BMI) 30.5 Physical Exam Narrative Vascular: DP and PT pulse are palpable to the left lower extremity. CFT is brisk. Skin temperature great is warm to warm from proximal ankles to distal digits bilateral. Evidence of erythema secondary to irritation from the Adaptic. Neurological: Light touch intact. Patient does respond to painful stimuli. Dermatological: Full-thickness wound to the dorsal aspect of the left foot measuring 1.5 x 0.4 x 0.1 cm. Wound base is 100% granular nature. No drainage. No probe to bone. No sign of infection. Excisional debridement down to and including subcutaneous tissue with a number 5 mm dermal curette to the dorsal left foot wound without incident. Predebridement measurement was 1.2 x 0.3 x 0.1 cm. Postdebridement measurement is 1.5 x 0.4 x 0.1 cm. EpiFix 18 mm was applied to the left full-thickness ulceration with 100% use. Fifth application. The graft site was free and clear of any infection. The wound/skin graft substitute was dressed with nonadherent bandage secured in place with Steri-Strips followed by bolster dressing as well as a double layer Tubigrip. Musculoskeletal: Muscle strength is 5 out of 5 in all quadrants left lower extremity. No pain on palpation to the full-thickness wound to the dorsal aspect of the left foot. No pain with calf pressure. Debridement Note Debridement Note Debridement Free Text: Excisional debridement down to and including subcutaneous tissue with a number 5 mm dermal curette to the dorsal left foot wound without incident. Predebridement measurement was 1.2 x 0.3 x 0.1 cm. Postdebridement measurement is 1.5 x 0.4 x 0.1 cm. EpiFix 18 mm was applied to the left full-thickness ulceration with 100% use. Fifth application. The graft site was free and clear of any infection. The wound/skin graft substitute was dressed with nonadherent bandage secured in place with Steri-Strips followed by bolster dressing as well as a double layer Tubigrip. 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/SUBSTATION ELECTRICIAN SUPERVISOR ) ) Arrival Mode Ambulatory Ambulatory Accompanied by self Patient Identification Verified (Name & Yes Yes ) Safety Precautions Fall Prevention Height and Weight Body Mass Index (BMI) 30.5 30.5 BMI Classification Obese Obese Vital Signs Temperature (97.8 F-99.1 F) 98.5 F 97.1 F L Temperature Source Temporal Temporal Pulse Rate (60-100) 107 H 80 Pulse Location Monitor Monitor Respiratory Rate (12-18) 18 16 Respiratory rate source Observation Observation Oxygen Delivery Method Room Air Room Air Blood Pressure (90/60-120/80) 129/82 H 181/71 H Blood Pressure Mean (mm Hg) 97 107 Source Monitor Monitor Position Sitting Semi-Fowlers Blood Pressure Location Left Arm Left Arm History Since Last Visit- (Skip if this is Patient's initial visit) Have you changed medications since your No last visit? Any new allergies or adverse reactions No Had a fall/change in ADL's that may No increase risk of falls Signs or symptoms of abuse and/or No neglect since last visit Have you been in the hospital since your No last visit? Has dressing in place as prescribed Yes Yes Has compression in place as prescribed Yes N/A Has offloadiing in place as prescribed Yes Yes Experienced any changes in pain level or Yes No management Left Footwear Surgical Shoe Surgical Shoe with pressure with pressure relief insole relief insole Right Footwear Regular Shoe Regular Shoe Pain Scale: 0-10 Numeric Is Patient Pain Free? Yes Yes - Nurse 1 - General Ulcer Measurement Start: 05/26/24 08:18 Freq: Status: Active Protocol: Activity Type Activity Date Activity User E-sign Co-sign Detail Recorded Client Recorded Date Recorded By Document 05/26/24 08:18 MT [id number] 05/26/24 08:25 MT Document 06/02/24 08:32 KW [id number] 06/02/24 08:41 KW 05/26/24 06/02/24 08:18 08:32 Wound Center Nurse 1 #1 LT DORSAL FOOT -Current Size (cm) - Length 2.2 1 -Current Size (cm) - Width 0.8 0.4 -Current Size (cm) - Depth 0.1 0.1 -Total Square Cm 1.76 0.4 -Date of Last Picture (Recall this 05/26/24 06/02/24 field) -Photo Taken Yes -Tunneling No -Undermining/Tunneling No -Circular Undermining No -Exudate Amt Medium Small -Exudate Type Serosanguineous Serosanguineous -Wound Margin Flat & Intact Distinct, Outline Attached -Granulation Amt Medium (34-66%) Large (67-100%) -Granulation Quality Pale,[place] -Necrosis Amt Small (1-33%) -Necrotic Tissue Type Adherent Slough -Texture (Danielle-wound Skin Appearance) Assessed Assessed -Moisture (Danielle-wound Skin Appearance) Assessed Assessed,Dry/ Scaly -Color (Danielle-wound Skin Appearance) Assessed Assessed -Temperature (Danielle-wound Skin No Abnormality No Abnormality Appearance) (Pt Warm) (Pt Warm) -Tenderness on Palpation (Danielle-wound No No Skin Appearance) -Ulcer Cleansing Soap and Water Rinsed/ Irrigated with Saline -Foul Odor after Cleansing No No -Anesthetic Used 5% Lidocaine 5% Lidocaine Gel Gel Lower Limb Edema Present NA - Nurse 2 - General Ulcer CM Notes Start: 05/26/24 08:18 Freq: Status: Active Protocol: Activity Type Activity Date Activity User E-sign Co-sign Detail Recorded Client Recorded Date Recorded By Document 05/26/24 08:48 AP [id number] 05/26/24 08:49 JF Document 06/02/24 09:10 AP [id number] 06/02/24 09:12 JF 05/26/24 06/02/24 08:48 09:10 Wound Center Nurse 2 #1 LT DORSAL FOOT -Time 08:48 09:11 -Correct Patient Yes Yes -Correct Side, Site, Position Yes Yes -Correct Procedure Yes Yes -Procedure Performed Yes Yes -Type of Procedure Debridement Debridement -Clinical Debridement Subcutaneous Subcutaneous -Tissue Removed Subcutaneous Subcutaneous -Post Debridement (cm) - Length 2.6 1.5 -Post Debridement (cm) - Width 0.8 0.4 -Post Debridement (cm) - Depth 0.1 0.1 -Total Square (Post) (cm) 2.08 0.60 -Area of Debridement (cm) - Length 2.6 1.5 -Area of Debridement (cm) - Width 0.8 0.4 -Total Square (Area) (cm) 2.08 0.60 -Tunneling No No -Undermining/Tunneling No No -Circular Undermining No No -Wound/Ulcer Outcome Not Healed Not Healed -Ulcer Cleansing Rinsed/ Rinsed/ Irrigated with Irrigated with Saline Saline -Foul Odor after Cleansing No No -Bioengineered Tissue Yes Yes -Type of Bioengineered Tissue Epifix Epifix 18mm Disc -Expiration Date 11/22/28 12/22/28 -Product Lot Number [id number] -Percent Used 100 100 -Lot number of Saline Used [id number] -Bleeding Controlled with Pressure Pressure -Treatment Response Procedure Procedure Tolerated Well Tolerated Well -Offloading Yes Yes -Type of Offloading Surgical Shoe Surgical Shoe -Debridement - Subq, 1st 20sq cm No No -Apply Skin Sub - 1st 25 sq cm - Feet 1 1 -Epifix (per sq cm) 4 -Epifix 18mm Disc 3 Pain Scale: 0-10 Numeric Is Patient Pain Free? Yes Yes - Nurse 3 - General Ulcer D/C NN Start: 05/26/24 08:18 Freq: Status: Active Protocol: Activity Type Activity Date Activity User E-sign Co-sign Detail Recorded Client Recorded Date Recorded By Document 06/02/24 09:23 SOPHIE [id number] 06/02/24 09:24 SOPHIE 06/02/24 09:23 Wound Care Center Nurse 3 #1 LT DORSAL FOOT -Primary Dressing Covered/Secured with Dry Gauze & Roll Gauze, Secured with Tape LLE -Compression Wrap Jaxson Wrap -Other 1 Pain Scale: 0-10 Numeric Is Patient Pain Free? Yes WC - Visit Discharge Discharge Condition Stable Ambulatory Status Ambulatory Transportation Private Auto Medication Reconcilliation completed & No provided to patient/care provider Clinical Summary of Care Provided Yes Assessment/Plan Assessment/Plan (1) Nondisplaced fracture of second metatarsal bone, left foot, initial encounter for closed fracture: CODE(S): S92.325A - Nondisplaced fracture of second metatarsal bone, left foot, initial encounter for closed fracture PLAN: Patient was examined and evaluated. All findings were discussed with the patient. All questions were answered to the patient's satisfaction. Excisional debridement down to and including subcutaneous tissue with a number 5 mm dermal curette to the dorsal left foot wound without incident. Predebridement measurement was 1.2 x 0.3 x 0.1 cm. Postdebridement measurement is 1.5 x 0.4 x 0.1 cm. EpiFix 18 mm was applied to the left full-thickness ulceration with 100% use. Fifth application. The graft site was free and clear of any infection. The wound/skin graft substitute was dressed with nonadherent bandage secured in place with Steri-Strips followed by bolster dressing as well as a double layer Tubigrip. Follow-up at the wound care center with Dr. Aguirre in 1 week.
--- NOTE | 2024-06-03 09:47 | WC ---
PHOTO 06/02/24 LEFT DORSAL FOOT
[2024-06-09 08:35] VITALS: BP 141/80; PULSE 98; RESP 16; TEMP 36.8; BMI 30.5
--- NOTE | 2024-06-09 10:50 | PCM.WC.PN ---
History of Present Illness Date of Service: 06/09/24 Chief Complaint: Left foot wound History of Wound: Left foot wound secondary to a work-related injury Progress of Wound: Stable healing wound dorsal left foot Subjective Subjective Mr. Orantes is a 68-year-old male presenting to wound care center today for follow-up evaluation of full-thickness wound secondary to a work-related injury and graft application to the left dorsal foot. He has left his dressing clean dry and intact. He has minimal weightbearing. He denies any new onset of trauma. Denies constitutional symptoms. No other pedal complaints at this time. Objective Data Objective Data Vital Signs: Vital Signs Temp Pulse Resp BP O2 Del Method 98.2 F 98 16 141/80 H Room Air 06/09/24 08:35 06/09/24 08:35 06/09/24 08:35 06/09/24 08:35 06/09/24 08:35 Oxygen Delivery Method Room Air Weight: 88.451 kg Body Mass Index (BMI) 30.5 Physical Exam Narrative Vascular: DP and PT pulse are palpable to the left lower extremity. CFT is brisk. Skin temperature great is warm to warm from proximal ankles to distal digits bilateral. No erythema. Neurological: Light touch intact. Patient does respond to painful stimuli. Dermatological: Full-thickness wound to the dorsal aspect of the left foot measuring 2.0 x 0.5 x 0.1 cm. Wound base is 100% granular nature. No drainage. No probe to bone. No sign of infection. Excisional debridement down to and including subcutaneous tissue with a number 5 mm dermal curette to the dorsal left foot wound without incident. Predebridement measurement was 1.8 x 0.3 x 0.1 cm. Postdebridement measurement is 2.0 x 0.5 x 0.1 cm. EpiFix 18 mm was applied to the left full-thickness ulceration with 100% use. Sixth application. The graft site was free and clear of any infection. The wound/skin graft substitute was dressed with nonadherent bandage secured in place with Steri-Strips followed by bolster dressing as well as a double layer Tubigrip. Musculoskeletal: Muscle strength is 5 out of 5 in all quadrants left lower extremity. No pain on palpation to the full-thickness wound to the dorsal aspect of the left foot. No pain with calf pressure. Debridement Note Debridement Note Debridement Free Text: Excisional debridement down to and including subcutaneous tissue with a number 5 mm dermal curette to the dorsal left foot wound without incident. Predebridement measurement was 1.8 x 0.3 x 0.1 cm. Postdebridement measurement is 2.0 x 0.5 x 0.1 cm. EpiFix 18 mm was applied to the left full-thickness ulceration with 100% use. Sixth application. The graft site was free and clear of any infection. The wound/skin graft substitute was dressed with nonadherent bandage secured in place with Steri-Strips followed by bolster dressing as well as a double layer Tubigrip. Post-Debridement Measurements and Additional Note: Post-Debridement Measurements/Treatment - Nurse 1 - General Ulcer Assessment Start: 05/26/24 08:18 Freq: Status: Active Protocol: CARLOS ALBERTO Activity Type Activity Date Activity User E-sign Co-sign Detail Recorded Client Recorded Date Recorded By Document 05/26/24 08:18 MT [id number] 05/26/24 08:25 MT Document 06/02/24 08:32 KW [id number] 06/02/24 08:41 KW Document 06/09/24 08:35 GM [id number] 06/09/24 08:38 GM 05/26/24 06/02/24 06/09/24 08:18 08:32 08:35 - Today's Visit Information Type of service Follow-up Visit Follow-up Visit Follow-up Visit (Physician/LINING MAKER (Physician/LINING MAKER (Physician/LINING MAKER ) ) ) Arrival Mode Ambulatory Ambulatory Ambulatory Transfer Assistance None Accompanied by self Patient Identification Verified (Name & Yes Yes Yes ) Safety Precautions Fall Prevention Height and Weight Body Mass Index (BMI) 30.5 30.5 30.5 BMI Classification Obese Obese Obese Vital Signs Temperature (97.8 F-99.1 F) 98.5 F 97.1 F L 98.2 F Temperature Source Temporal Temporal Temporal Pulse Rate (60-100) 107 H 80 98 Pulse Location Monitor Monitor Monitor Respiratory Rate (12-18) 18 16 16 Respiratory rate source Observation Observation Observation Oxygen Delivery Method Room Air Room Air Room Air Blood Pressure (90/60-120/80) 129/82 H 181/71 H 141/80 H Blood Pressure Mean (mm Hg) 97 107 100 Source Monitor Monitor Monitor Position Sitting Semi-Fowlers Sitting Blood Pressure Location Left Arm Left Arm Left Arm History Since Last Visit- (Skip if this is Patient's initial visit) Have you changed medications since your No No last visit? Any new allergies or adverse reactions No No Had a fall/change in ADL's that may No No increase risk of falls Signs or symptoms of abuse and/or No No neglect since last visit Have you been in the hospital since your No No last visit? Has dressing in place as prescribed Yes Yes Yes Has compression in place as prescribed Yes N/A Yes Has offloadiing in place as prescribed Yes Yes Yes Experienced any changes in pain level or Yes No No management Left Footwear Surgical Shoe Surgical Shoe Surgical Shoe with pressure with pressure with pressure relief insole relief insole relief insole Right Footwear Regular Shoe Regular Shoe Regular Shoe Pain Scale: 0-10 Numeric Is Patient Pain Free? Yes Yes Yes WC - Nurse 1 - General Ulcer Measurement Start: 05/26/24 08:18 Freq: Status: Active Protocol: Activity Type Activity Date Activity User E-sign Co-sign Detail Recorded Client Recorded Date Recorded By Document 05/26/24 08:18 MT [id number] 05/26/24 08:25 MT Document 06/02/24 08:32 KW [id number] 06/02/24 08:41 KW Document 06/09/24 08:35 [id number] 06/09/24 08:38 05/26/24 06/02/24 06/09/24 08:18 08:32 08:35 Wound Center Nurse 1 #1 LT DORSAL FOOT -Combined with other wound No -Current Size (cm) - Length 2.2 1 3.2 -Current Size (cm) - Width 0.8 0.4 0.3 -Current Size (cm) - Depth 0.1 0.1 0.1 -Total Square Cm 1.76 0.4 0.96 -Date of Last Picture (Recall this 05/26/24 06/02/24 06/09/24 field) -Photo Taken Yes Yes -Epithelialization Large 67-100% -Tunneling No No -Undermining/Tunneling No No -Circular Undermining No No -Exudate Amt Medium Small Small -Exudate Type Serosanguineous Serosanguineous Yellow/Green -Wound Margin Flat & Intact Distinct, Distinct, Outline Outline Attached Attached -Granulation Amt Medium (34-66%) Large (67-100%) Large (67-100%) -Granulation Quality Pale,[place] Red Red -Slough/Fibrin No -Necrosis Amt Small (1-33%) None Present (0 %) -Necrotic Tissue Type Adherent Slough -Texture (Danielle-wound Skin Appearance) Assessed Assessed Assessed -Moisture (Danielle-wound Skin Appearance) Assessed Assessed,Dry/ Assessed Scaly -Color (Danielle-wound Skin Appearance) Assessed Assessed Assessed -Temperature (Danielle-wound Skin No Abnormality No Abnormality No Abnormality Appearance) (Pt Warm) (Pt Warm) (Pt Warm) -Tenderness on Palpation (Danielle-wound No No No Skin Appearance) -Ulcer Cleansing Soap and Water Rinsed/ Soap and Water Irrigated with Saline -Foul Odor after Cleansing No No No -Anesthetic Used 5% Lidocaine 5% Lidocaine 5% Lidocaine Gel Gel Gel Lower Limb Edema Present NA WC - Nurse 2 - General Ulcer CM Notes Start: 05/26/24 08:18 Freq: Status: Active Protocol: Activity Type Activity Date Activity User E-sign Co-sign Detail Recorded Client Recorded Date Recorded By Document 05/26/24 08:48 [id number] 05/26/24 08:49 Document 06/02/24 09:10 [id number] 06/02/24 09:12 Document 06/09/24 08:53 [id number] 06/09/24 08:56 05/26/24 06/02/24 06/09/24 08:48 09:10 08:53 Wound Center Nurse 2 #1 LT DORSAL FOOT -Time 08:48 09:11 08:54 -Correct Patient Yes Yes Yes -Correct Side, Site, Position Yes Yes Yes -Correct Procedure Yes Yes Yes -Procedure Performed Yes Yes Yes -Type of Procedure Debridement Debridement Debridement -Clinical Debridement Subcutaneous Subcutaneous Subcutaneous -Tissue Removed Subcutaneous Subcutaneous Subcutaneous -Post Debridement (cm) - Length 2.6 1.5 2.0 -Post Debridement (cm) - Width 0.8 0.4 0.5 -Post Debridement (cm) - Depth 0.1 0.1 0.1 -Total Square (Post) (cm) 2.08 0.60 1.00 -Area of Debridement (cm) - Length 2.6 1.5 2.0 -Area of Debridement (cm) - Width 0.8 0.4 0.5 -Total Square (Area) (cm) 2.08 0.60 1.00 -Tunneling No No No -Undermining/Tunneling No No No -Circular Undermining No No No -Wound/Ulcer Outcome Not Healed Not Healed Not Healed -Ulcer Cleansing Rinsed/ Rinsed/ Rinsed/ Irrigated with Irrigated with Irrigated with Saline Saline Saline -Foul Odor after Cleansing No No No -Bioengineered Tissue Yes Yes Yes -Type of Bioengineered Tissue Epifix Epifix 18mm Epifix 18mm Disc Disc -Expiration Date 11/22/28 12/22/28 12/22/28 -Product Lot Number [id number] -Percent Used 100 100 100 -Lot number of Saline Used [id number] -Bleeding Controlled with Pressure Pressure Pressure -Treatment Response Procedure Procedure Procedure Tolerated Well Tolerated Well Tolerated Well -Offloading Yes Yes Yes -Type of Offloading Surgical Shoe Surgical Shoe Surgical Shoe -Debridement - Subq, 1st 20sq cm No No No -Apply Skin Sub - 1st 25 sq cm - Feet 1 1 1 -Epifix (per sq cm) 4 -Epifix 18mm Disc 3 3 Pain Scale: 0-10 Numeric Is Patient Pain Free? Yes Yes Yes WC - Nurse 3 - General Ulcer D/C NN Start: 05/26/24 08:18 Freq: Status: Active Protocol: Activity Type Activity Date Activity User E-sign Co-sign Detail Recorded Client Recorded Date Recorded By Document 05/26/24 09:00 DS [id number] 06/04/24 16:31 DS Document 06/02/24 09:23 KW [id number] 06/02/24 09:24 KW Document 06/09/24 09:08 [id number] 06/09/24 09:08 05/26/24 06/02/24 06/09/24 09:00 09:23 09:08 Wound Care Center Nurse 3 #1 LT DORSAL FOOT -Ulcer Cleansing Not Cleansed -Foul Odor after Cleansing No -Primary Dressing Covered/Secured with Dry Gauze, Dry Gauze & Dry Gauze & Secured with Roll Gauze, Roll Gauze, Tape Secured with Secured with Tape Tape LLE -Lotion applied to leg before No compression wrap -Compression Wrap Jaxson Wrap Jaxson Wrap Jaxson Wrap -Other 1 Pain Scale: 0-10 Numeric Is Patient Pain Free? Yes Yes Yes WC - Visit Discharge Discharge Condition Stable Stable Stable Ambulatory Status Ambulatory Ambulatory Transportation Private Auto Private Auto Medication Reconcilliation completed & No provided to patient/care provider Clinical Summary of Care Provided Yes Assessment/Plan Assessment/Plan (1) Nondisplaced fracture of second metatarsal bone, left foot, initial encounter for closed fracture: CODE(S): S92.325A - Nondisplaced fracture of second metatarsal bone, left foot, initial encounter for closed fracture PLAN: Patient was examined and evaluated. All findings were discussed with the patient. All questions were answered to the patient's satisfaction. Excisional debridement down to and including subcutaneous tissue with a number 5 mm dermal curette to the dorsal left foot wound without incident. Predebridement measurement was 1.8 x 0.3 x 0.1 cm. Postdebridement measurement is 2.0 x 0.5 x 0.1 cm. EpiFix 18 mm was applied to the left full-thickness ulceration with 100% use. Sixth application. The graft site was free and clear of any infection. The wound/skin graft substitute was dressed with nonadherent bandage secured in place with Steri-Strips followed by bolster dressing as well as a double layer Tubigrip. Follow-up at the wound care center with Dr. Aguirre in 1 week.
--- NOTE | 2024-06-10 08:22 | WC ---
PHOTO 06/09/24 LEFT FOOT
[2024-06-16 07:54] VITALS: BP 164/89; PULSE 100; RESP 14; TEMP 36.7; BMI 30.5
--- NOTE | 2024-06-16 09:14 | PN.PCM_ITS ---
History of Present Illness Date of Service: 06/16/24 Chief Complaint: Left foot wound History of Wound: Left foot wound secondary to a work-related injury Progress of Wound: Stable healing wound dorsal left foot Subjective Subjective Mr. Orantes is a 68-year-old male presenting to wound care center today for follow- up evaluation of metatarsal fracture to the left foot as well as full-thickness wound to dorsal aspect of the left foot. He has left his dressing clean dry and intact. He has not changed his skin graft and has left it alone. He does admit to changing the outer dressing. He has been weightbearing as tolerated with mild mild to minimal pain to the left foot with surgical shoe. Denies trauma. Denies constitutional symptoms. No other pedal complaints at this time. Objective Data Objective Data Vital Signs: Vital Signs Temp Pulse Resp BP O2 Del Method 98.0 F 100 14 164/89 H Room Air 06/16/24 07:54 06/16/24 07:54 06/16/24 07:54 06/16/24 07:54 06/09/24 08:35 Oxygen Delivery Method Room Air Weight: 88.451 kg Body Mass Index (BMI) 30.5 Physical Exam Narrative Vascular: DP and PT pulse are palpable to the left lower extremity. CFT is brisk. Skin temperature great is warm to warm from proximal ankles to distal digits bilateral. No erythema. Neurological: Light touch intact. Patient does respond to painful stimuli. Dermatological: Full-thickness wound to the dorsal aspect of the left foot measuring 1.5 x 0.6 x 0.1 cm. Wound base is 100% granular nature. No drainage. No probe to bone. No sign of infection. Excisional debridement down to and including subcutaneous tissue with a number 5 mm dermal curette to the dorsal left foot wound without incident. Predebridement measurement was 1.2 x 0.5 x 0.1 cm. Postdebridement measurement is 1.5 x 0.6 x 0.1 cm. EpiFix 18 mm was applied to the left full-thickness ulceration with 100% use. Seveth application. The graft site was free and clear of any infection. The wound/skin graft substitute was dressed with nonadherent bandage secured in place with Steri-Strips followed by bolster dressing as well as a double layer Tubigrip. Musculoskeletal: Muscle strength is 5 out of 5 in all quadrants left lower extremity. No pain on palpation to the full-thickness wound to the dorsal aspect of the left foot. No pain with calf pressure. Debridement Note Debridement Note Debridement Free Text: Excisional debridement down to and including subcutaneous tissue with a number 5 mm dermal curette to the dorsal left foot wound without incident. Predebridement measurement was 1.2 x 0.5 x 0.1 cm. Postdebridement measurement is 1.5 x 0.6 x 0.1 cm. EpiFix 18 mm was applied to the left full-thickness ulceration with 100% use. Seveth application. The graft site was free and clear of any infection. The wound/skin graft substitute was dressed with nonadherent bandage secured in place with Steri-Strips followed by bolster dressing as well as a double layer Tubigrip. Post-Debridement Measurements and Additional Note: Post-Debridement Measurements/Treatment - Nurse 1 - General Ulcer Assessment Start: 05/26/24 08:18 Freq: Status: Active Protocol: CARLOS ALBERTO Activity Type Activity Date Activity User E-sign Co-sign Detail Recorded Client Recorded Date Recorded By Document 05/26/24 08:18 MT [id number] 05/26/24 08:25 MT Document 06/02/24 08:32 KW [id number] 06/02/24 08:41 KW Document 06/09/24 08:35 GM [id number] 06/09/24 08:38 GM Document 06/16/24 07:54 ML [id number] 06/16/24 08:00 ML 05/26/24 06/02/24 06/09/24 08:18 08:32 08:35 - Today's Visit Information Type of service Follow-up Visit Follow-up Visit Follow-up Visit (Physician/MODEL BUILDER DISPLAY (Physician/MODEL BUILDER DISPLAY (Physician/MODEL BUILDER DISPLAY ) ) ) Arrival Mode Ambulatory Ambulatory Ambulatory Transfer Assistance None Accompanied by self Patient Identification Verified (Name & Yes Yes Yes ) Patient Requires Transmission-Based Precautions Safety Precautions Fall Prevention Height and Weight Body Mass Index (BMI) 30.5 30.5 30.5 BMI Classification Obese Obese Obese Vital Signs Temperature (97.8 F-99.1 F) 98.5 F 97.1 F L 98.2 F Temperature Source Temporal Temporal Temporal Pulse Rate (60-100) 107 H 80 98 Pulse Location Monitor Monitor Monitor Respiratory Rate (12-18) 18 16 16 Respiratory rate source Observation Observation Observation Oxygen Delivery Method Room Air Room Air Room Air Blood Pressure (90/60-120/80) 129/82 H 181/71 H 141/80 H Blood Pressure Mean (mm Hg) 97 107 100 Source Monitor Monitor Monitor Position Sitting Semi-Fowlers Sitting Blood Pressure Location Left Arm Left Arm Left Arm History Since Last Visit- (Skip if this is Patient's initial visit) Have you changed medications since your No No last visit? Any new allergies or adverse reactions No No Had a fall/change in ADL's that may No No increase risk of falls Signs or symptoms of abuse and/or No No neglect since last visit Have you been in the hospital since your No No last visit? Has dressing in place as prescribed Yes Yes Yes Has compression in place as prescribed Yes N/A Yes Has offloadiing in place as prescribed Yes Yes Yes Experienced any changes in pain level or Yes No No management Left Footwear Surgical Shoe Surgical Shoe Surgical Shoe with pressure with pressure with pressure relief insole relief insole relief insole Right Footwear Regular Shoe Regular Shoe Regular Shoe Pain Scale: 0-10 Numeric Is Patient Pain Free? Yes Yes Yes 06/16/24 07:54 WC - Today's Visit Information Type of service Follow-up Visit (Physician/MODEL BUILDER DISPLAY ) Arrival Mode Ambulatory Transfer Assistance None Accompanied by Patient Identification Verified (Name & Yes ) Patient Requires Transmission-Based No Precautions Safety Precautions Height and Weight Body Mass Index (BMI) 30.5 BMI Classification Obese Vital Signs Temperature (97.8 F-99.1 F) 98.0 F Temperature Source Temporal Pulse Rate (60-100) 100 Pulse Location Monitor Respiratory Rate (12-18) 14 Respiratory rate source Observation Oxygen Delivery Method Blood Pressure (90/60-120/80) 164/89 H Blood Pressure Mean (mm Hg) 114 Source Monitor Position Sitting Blood Pressure Location Right Arm History Since Last Visit- (Skip if this is Patient's initial visit) Have you changed medications since your No last visit? Any new allergies or adverse reactions No Had a fall/change in ADL's that may No increase risk of falls Signs or symptoms of abuse and/or No neglect since last visit Have you been in the hospital since your No last visit? Has dressing in place as prescribed Yes Has compression in place as prescribed N/A Has offloadiing in place as prescribed N/A Experienced any changes in pain level or No management Left Footwear Right Footwear Pain Scale: 0-10 Numeric Is Patient Pain Free? Yes WC - Nurse 1 - General Ulcer Measurement Start: 05/26/24 08:18 Freq: Status: Active Protocol: Activity Type Activity Date Activity User E-sign Co-sign Detail Recorded Client Recorded Date Recorded By Document 05/26/24 08:18 MT [id number] 05/26/24 08:25 MT Document 06/02/24 08:32 KW [id number] 06/02/24 08:41 KW Document 06/09/24 08:35 GM [id number] 06/09/24 08:38 GM Document 06/16/24 07:54 ML [id number] 06/16/24 08:00 ML 05/26/24 06/02/24 06/09/24 08:18 08:32 08:35 Wound Center Nurse 1 #1 LT DORSAL FOOT -Combined with other wound No -Current Size (cm) - Length 2.2 1 3.2 -Current Size (cm) - Width 0.8 0.4 0.3 -Current Size (cm) - Depth 0.1 0.1 0.1 -Total Square Cm 1.76 0.4 0.96 -Date of Last Picture (Recall this 05/26/24 06/02/24 06/09/24 field) -Photo Taken Yes Yes -Epithelialization Large 67-100% -Tunneling No No -Undermining/Tunneling No No -Circular Undermining No No -Exudate Amt Medium Small Small -Exudate Type Serosanguineous Serosanguineous Yellow/Green -Wound Margin Flat & Intact Distinct, Distinct, Outline Outline Attached Attached -Granulation Amt Medium (34-66%) Large (67-100%) Large (67-100%) -Granulation Quality Pale,[place] Red Red -Slough/Fibrin No -Necrosis Amt Small (1-33%) None Present (0 %) -Necrotic Tissue Type Adherent Slough -Texture (Danielle-wound Skin Appearance) Assessed Assessed Assessed -Moisture (Danielle-wound Skin Appearance) Assessed Assessed,Dry/ Assessed Scaly -Color (Danielle-wound Skin Appearance) Assessed Assessed Assessed -Temperature (Danielle-wound Skin No Abnormality No Abnormality No Abnormality Appearance) (Pt Warm) (Pt Warm) (Pt Warm) -Tenderness on Palpation (Danielle-wound No No No Skin Appearance) -Ulcer Cleansing Soap and Water Rinsed/ Soap and Water Irrigated with Saline -Foul Odor after Cleansing No No No -Anesthetic Used 5% Lidocaine 5% Lidocaine 5% Lidocaine Gel Gel Gel Lower Limb Edema Present 06/16/24 07:54 Wound Center Nurse 1 #1 LT DORSAL FOOT -Combined with other wound -Current Size (cm) - Length 0.1 -Current Size (cm) - Width 0.1 -Current Size (cm) - Depth 0.1 -Total Square Cm 0.01 -Date of Last Picture (Recall this field) -Photo Taken -Epithelialization -Tunneling -Undermining/Tunneling -Circular Undermining -Exudate Amt Medium -Exudate Type Serosanguineous -Wound Margin -Granulation Amt Medium (34-66%) -Granulation Quality -Slough/Fibrin Yes -Necrosis Amt Medium (34-66%) -Necrotic Tissue Type Adherent Slough -Texture (Danielle-wound Skin Appearance) Assessed -Moisture (Danielle-wound Skin Appearance) Maceration,Dry/ Scaly -Color (Danielle-wound Skin Appearance) Assessed -Temperature (Danielle-wound Skin No Abnormality Appearance) (Pt Warm) -Tenderness on Palpation (Danielle-wound No Skin Appearance) -Ulcer Cleansing Soap and Water -Foul Odor after Cleansing No -Anesthetic Used 5% Lidocaine Gel Lower Limb Edema Present - Nurse 2 - General Ulcer CM Notes Start: 05/26/24 08:18 Freq: Status: Active Protocol: Activity Type Activity Date Activity User E-sign Co-sign Detail Recorded Client Recorded Date Recorded By Document 05/26/24 08:48 [id number] 05/26/24 08:49 Document 06/02/24 09:10 [id number] 06/02/24 09:12 Document 06/09/24 08:53 [id number] 06/09/24 08:56 Document 06/16/24 08:20 [id number] 06/16/24 08:22 JF 05/26/24 06/02/24 06/09/24 08:48 09:10 08:53 Wound Center Nurse 2 #1 LT DORSAL FOOT -Time 08:48 09:11 08:54 -Correct Patient Yes Yes Yes -Correct Side, Site, Position Yes Yes Yes -Correct Procedure Yes Yes Yes -Procedure Performed Yes Yes Yes -Type of Procedure Debridement Debridement Debridement -Clinical Debridement Subcutaneous Subcutaneous Subcutaneous -Tissue Removed Subcutaneous Subcutaneous Subcutaneous -Post Debridement (cm) - Length 2.6 1.5 2.0 -Post Debridement (cm) - Width 0.8 0.4 0.5 -Post Debridement (cm) - Depth 0.1 0.1 0.1 -Total Square (Post) (cm) 2.08 0.60 1.00 -Area of Debridement (cm) - Length 2.6 1.5 2.0 -Area of Debridement (cm) - Width 0.8 0.4 0.5 -Total Square (Area) (cm) 2.08 0.60 1.00 -Tunneling No No No -Undermining/Tunneling No No No -Circular Undermining No No No -Wound/Ulcer Outcome Not Healed Not Healed Not Healed -Ulcer Cleansing Rinsed/ Rinsed/ Rinsed/ Irrigated with Irrigated with Irrigated with Saline Saline Saline -Foul Odor after Cleansing No No No -Bioengineered Tissue Yes Yes Yes -Type of Bioengineered Tissue Epifix Epifix 18mm Epifix 18mm Disc Disc -Expiration Date 11/22/28 12/22/28 12/22/28 -Product Lot Number [id number] -Percent Used 100 100 100 -Lot number of Saline Used [id number] -Bleeding Controlled with Pressure Pressure Pressure -Treatment Response Procedure Procedure Procedure Tolerated Well Tolerated Well Tolerated Well -Offloading Yes Yes Yes -Type of Offloading Surgical Shoe Surgical Shoe Surgical Shoe -Debridement - Subq, 1st 20sq cm No No No -Apply Skin Sub - 1st 25 sq cm - Feet 1 1 1 -Epifix (per sq cm) 4 -Epifix 18mm Disc 3 3 Pain Scale: 0-10 Numeric Is Patient Pain Free? Yes Yes Yes 06/16/24 08:20 Wound Center Nurse 2 #1 LT DORSAL FOOT -Time 08:21 -Correct Patient Yes -Correct Side, Site, Position Yes -Correct Procedure Yes -Procedure Performed Yes -Type of Procedure Debridement -Clinical Debridement Subcutaneous -Tissue Removed Subcutaneous -Post Debridement (cm) - Length 1.5 -Post Debridement (cm) - Width 0.6 -Post Debridement (cm) - Depth 0.1 -Total Square (Post) (cm) 0.90 -Area of Debridement (cm) - Length 1.5 -Area of Debridement (cm) - Width 0.6 -Total Square (Area) (cm) 0.90 -Tunneling No -Undermining/Tunneling No -Circular Undermining No -Wound/Ulcer Outcome Not Healed -Ulcer Cleansing Rinsed/ Irrigated with Saline -Foul Odor after Cleansing No -Bioengineered Tissue Yes -Type of Bioengineered Tissue Epifix 18mm Disc -Expiration Date 12/22/28 -Product Lot Number [id number] -Percent Used 100 -Lot number of Saline Used [id number] -Bleeding Controlled with Pressure -Treatment Response Procedure Tolerated Well -Offloading Yes -Type of Offloading Camwalker -Debridement - Subq, 1st 20sq cm No -Apply Skin Sub - 1st 25 sq cm - Feet 1 -Epifix (per sq cm) -Epifix 18mm Disc 3 Pain Scale: 0-10 Numeric Is Patient Pain Free? Yes - Nurse 3 - General Ulcer D/C NN Start: 05/26/24 08:18 Freq: Status: Active Protocol: Activity Type Activity Date Activity User E-sign Co-sign Detail Recorded Client Recorded Date Recorded By Document 05/26/24 09:00 DS [id number] 06/04/24 16:31 DS Document 06/02/24 09:23 KW [id number] 06/02/24 09:24 KW Document 06/09/24 09:08 [id number] 06/09/24 09:08 Document 06/16/24 08:26 KW [id number] 06/16/24 08:27 KW 05/26/24 06/02/24 06/09/24 09:00 09:23 09:08 Wound Care Center Nurse 3 #1 LT DORSAL FOOT -Ulcer Cleansing Not Cleansed -Foul Odor after Cleansing No -Primary Dressing Covered/Secured with Dry Gauze, Dry Gauze & Dry Gauze & Secured with Roll Gauze, Roll Gauze, Tape Secured with Secured with Tape Tape LLE -Lotion applied to leg before No compression wrap -Compression Wrap Jaxson Wrap Jaxson Wrap Jaxson Wrap -Other 1 Pain Scale: 0-10 Numeric Is Patient Pain Free? Yes Yes Yes - Visit Discharge Discharge Condition Stable Stable Stable Ambulatory Status Ambulatory Ambulatory Transportation Private Auto Private Auto Medication Reconcilliation completed & No provided to patient/care provider Clinical Summary of Care Provided Yes 06/16/24 08:26 Wound Care Center Nurse 3 #1 LT DORSAL FOOT -Ulcer Cleansing -Foul Odor after Cleansing -Primary Dressing Covered/Secured with Dry Gauze & Roll Gauze, Secured with Tape LLE -Lotion applied to leg before compression wrap -Compression Wrap -Other Pain Scale: 0-10 Numeric Is Patient Pain Free? Yes WC - Visit Discharge Discharge Condition Stable Ambulatory Status Ambulatory Transportation Private Auto Medication Reconcilliation completed & No provided to patient/care provider Clinical Summary of Care Provided Yes Assessment/Plan Assessment/Plan (1) Nondisplaced fracture of second metatarsal bone, left foot, initial encounter for closed fracture: CODE(S): S92.325A - Nondisplaced fracture of second metatarsal bone, left foot, initial encounter for closed fracture PLAN: Patient was examined and evaluated. All findings were discussed with the patient. All questions were answered to the patient's satisfaction. Excisional debridement down to and including subcutaneous tissue with a number 5 mm dermal curette to the dorsal left foot wound without incident. Predebridement measurement was 1.2 x 0.5 x 0.1 cm. Postdebridement measurement is 1.5 x 0.6 x 0.1 cm. EpiFix 18 mm was applied to the left full-thickness ulceration with 100% use. Seveth application. The graft site was free and clear of any infection. The wound/skin graft substitute was dressed with nonadherent bandage secured in place with Steri-Strips followed by bolster dressing as well as a double layer Tubigrip. Educated the patient to start using his cam walker for more protective weightbearing to left lower extremity than the surgical shoe he was understanding this. Will move forward with a C9 for a left foot x-ray to evaluate the fracture of the lesser metatarsals of the left foot. Follow-up at the wound care center with Dr. Aguirre in 1 week.
== END 2024-06-21 23:59 | disposition home or self-care (01) ==
LOC: WC 08:00
PROVIDERS: Visit Provider Podiatrist Foot & Ankle Surgery
DX: L97.928 Non-pressure chronic ulcer of unspecified part of left lower leg with other specified severity (principal); S92.325D Nondisplaced fracture of second metatarsal bone, left foot, subsequent encounter for fracture with routine healing; S92.335D Nondisplaced fracture of third metatarsal bone, left foot, subsequent encounter for fracture with routine healing; S92.345D Nondisplaced fracture of fourth metatarsal bone, left foot, subsequent encounter for fracture with routine healing; X58.XXXA Exposure to other specified factors, initial encounter; Y99.0 Civilian activity done for income or pay; Z79.82 Long term (current) use of aspirin; Z79.899 Other long term (current) drug therapy
CPT/HCPCS: 15275; Q4186

== ENCOUNTER 2024-07-07 08:30 | Outpatient (RCR) | payer OTHER, SELFPAY ==
[2024-06-22 00:47] VITALS: BP 164/89; PULSE 100; RESP 14; TEMP 36.7; BMI 30.5
[2024-06-23 08:24] VITALS: BP 154/87; PULSE 104; RESP 16; TEMP 36.6; BMI 30.5
--- NOTE | 2024-06-23 08:59 | PCM.WC.PN ---
History of Present Illness Date of Service: 06/23/24 Chief Complaint: Left foot wound History of Wound: Left foot wound secondary to a work-related injury Progress of Wound: Stable healing wound dorsal left foot Subjective Subjective Mr. Orantes is a 68-year-old male presenting to the wound care center for follow-up evaluation of full-thickness wound to graft application secondary to an injury at work to the left lower extremity. He has left the dressing clean dry and intact. He states that his wound is healed. He has not gotten his x-ray to the left foot since she has been waiting for his C9 approval. He states pain is well-controlled in the boot. He will like to transfer to regular work boots if able. He denies any new onset of trauma. Denies constitutional symptoms. No other pedal complaints at this time. Objective Data Objective Data Vital Signs: Vital Signs Temp Pulse Resp BP O2 Del Method 97.8 F 104 H 16 154/87 H Room Air 06/23/24 08:24 06/23/24 08:24 06/23/24 08:24 06/23/24 08:24 06/23/24 08:24 Oxygen Delivery Method Room Air Weight: 88.451 kg Body Mass Index (BMI) 30.5 Physical Exam Narrative Vascular: DP and PT pulse are palpable to the left lower extremity. CFT is brisk. Skin temperature great is warm to warm from proximal ankles to distal digits bilateral. No erythema. Neurological: Light touch intact. Patient does respond to painful stimuli. Dermatological: Full-thickness dorsal wound to the left foot shows evidence of sanguinous crust and healed. No erythema drainage or sign of infection. Musculoskeletal: Muscle strength is 5 out of 5 in all quadrants left lower extremity. No pain on palpation to the full-thickness wound to the dorsal aspect of the left foot. No pain with calf pressure. Debridement Note Debridement Note Post-Debridement Measurements and Additional Note: Post-Debridement Measurements/Treatment JH - Nurse 1 - General Ulcer Assessment Start: 06/23/24 08:23 Freq: Status: Active Protocol: CARLOS ALBERTO Activity Type Activity Date Activity User E-sign Co-sign Detail Recorded Client Recorded Date Recorded By Document 06/23/24 08:24 KW [id number] 06/23/24 08:27 KW 06/23/24 08:24 Height and Weight Body Mass Index (BMI) 30.5 BMI Classification Obese Vital Signs Temperature (97.8 F-99.1 F) 97.8 F Temperature Source Temporal Pulse Rate (60-100) 104 H Pulse Location Monitor Respiratory Rate (12-18) 16 Respiratory rate source Observation Oxygen Delivery Method Room Air Blood Pressure (90/60-120/80) 154/87 H Blood Pressure Mean (mm Hg) 109 Source Monitor Position Semi-Fowlers Blood Pressure Location Left Arm History Since Last Visit- (Skip if this is Patient's initial visit) Have you changed medications since your No last visit? Any new allergies or adverse reactions No Had a fall/change in ADL's that may No increase risk of falls Signs or symptoms of abuse and/or No neglect since last visit Have you been in the hospital since your No last visit? Has dressing in place as prescribed Yes Has compression in place as prescribed N/A Has offloadiing in place as prescribed Yes Experienced any changes in pain level or No management Left Footwear Regular Shoe Right Footwear Removable Cast Walker/Walking Boot Pain Scale: 0-10 Numeric Is Patient Pain Free? Yes WC - Nurse 1 - General Ulcer Measurement Start: 06/23/24 08:23 Freq: Status: Active Protocol: Activity Type Activity Date Activity User E-sign Co-sign Detail Recorded Client Recorded Date Recorded By Document 06/23/24 08:24 KW [id number] 06/23/24 08:27 KW 06/23/24 08:24 Wound Center Nurse 1 #1 LT DORSAL FOOT -Current Size (cm) - Length 0.1 -Current Size (cm) - Width 0.1 -Current Size (cm) - Depth 0 -Total Square Cm 0.01 -Date of Last Picture (Recall this 06/23/24 field) -Epithelialization Large 67-100% -Exudate Amt None Present -Necrosis Amt Large (67-100%) -Necrotic Tissue Type Adherent Slough -Texture (Danielle-wound Skin Appearance) Assessed -Moisture (Danielle-wound Skin Appearance) Assessed -Color (Danielle-wound Skin Appearance) Assessed -Temperature (Danielle-wound Skin No Abnormality Appearance) (Pt Warm) -Tenderness on Palpation (Danielle-wound No Skin Appearance) -Ulcer Cleansing Soap and Water -Foul Odor after Cleansing No -Anesthetic Used 5% Lidocaine Gel WC - Nurse 2 - General Ulcer CM Notes Start: 06/23/24 08:23 Freq: Status: Active Protocol: Activity Type Activity Date Activity User E-sign Co-sign Detail Recorded Client Recorded Date Recorded By Document 06/23/24 08:42 JF [id number] 06/23/24 08:43 06/23/24 08:42 Wound Center Nurse 2 -Correct Patient Yes -Correct Side, Site, Position No -Correct Procedure No -Procedure Performed No -Post Debridement (cm) - Length 0 -Post Debridement (cm) - Width 0 -Post Debridement (cm) - Depth 0 -Total Square (Post) (cm) 0 -Area of Debridement (cm) - Length 0 -Area of Debridement (cm) - Width 0 -Total Square (Area) (cm) 0 -Wound/Ulcer Outcome Healed- Epithelialized Pain Scale: 0-10 Numeric Is Patient Pain Free? Yes WC - Nurse 3 - General Ulcer D/C NN Start: 06/23/24 08:23 Freq: Status: Active Protocol: Activity Type Activity Date Activity User E-sign Co-sign Detail Recorded Client Recorded Date Recorded By Document 06/23/24 08:43 [id number] 06/23/24 08:43 06/23/24 08:43 Is Patient Pain Free? Yes WC - Visit Discharge Discharge Condition Stable Ambulatory Status Ambulatory Transportation Private Auto Medication Reconcilliation completed & Yes provided to patient/care provider Clinical Summary of Care Provided Yes Assessment/Plan Assessment/Plan (1) Nondisplaced fracture of second metatarsal bone, left foot, initial encounter for closed fracture: CODE(S): S92.325A - Nondisplaced fracture of second metatarsal bone, left foot, initial encounter for closed fracture PLAN: Patient was examined and evaluated. All findings were discussed with the patient. All questions were answered to the patient's satisfaction. At this time the patient is full-thickness wound to the dorsal aspect of the left foot is now healed. Patient will continue to monitor the area and cover with a sterile Band-Aid and weight-bear as tolerated in the cam boot. Educated the patient that he can try to get into work boots and see how he feels, if he is having pain he is to transfer back to the cam boot and continue weightbearing as tolerated. C9 has been approved for left foot x-ray. He will get that today. Educated the patient the time to healing a fractured bone and educated the patient the need for elective surgery if the bone is displaced which she was very understanding of. He understands his treatment course at this time and has been very grateful for his care. Follow-up at the wound care center with Dr. Aguirre in 2 week.
--- NOTE | 2024-06-23 09:07 | RAD_ITS ---
EXAM: Foot minimum three views CLINICAL HISTORY: Left foot fracture COMPARISON: 03/03/2024 TECHNIQUE: Three views left foot FINDINGS: Overlying compression stocking. Fractures across the base of the 2nd through 4th metatarsals again noted without significant change in alignment. The fracture planes appear somewhat less visible with some increased density suggesting interval partial incomplete healing. Suggestion of some osteopenia of disuse. Enthesophyte formation at the Achilles and plantar surfaces of the calcaneus again noted. Arterial vascular calcifications again seen. RAD/Foot min 3 Views IMPRESSION: Overlying compression stocking. Fractures across the base of the 2nd through 4 th metatarsals again noted without significant change in alignment. The fracture planes appear somewhat less visible with some increased density suggesting interval partial incomplete healing. Suggestion of some osteopenia of disuse. Reading Location: [id number]
--- NOTE | 2024-06-24 10:00 | WC ---
PHOTO 06/23/24 LEFT FOOT
--- NOTE | 2024-06-24 10:02 | WC ---
PHOTO 06/23/24 LEFT FOOT
[2024-07-07 08:11] VITALS: BP 181/95; PULSE 104; RESP 18; TEMP 36.8; BMI 30.5
--- NOTE | 2024-07-07 09:46 | PN.PCM_ITS ---
History of Present Illness Date of Service: 07/07/24 Chief Complaint: Left foot wound History of Wound: Left foot wound secondary to a work-related injury Progress of Wound: Healed dorsal full-thickness wound left foot Subjective Subjective Mr. Orantes is a 68-year-old male presenting with his son today follow-up evaluation of full-thickness wound to the dorsal lateral left heel secondary to work-related injury. Patient has completed the healing process of the full- thickness wound with amniotic skin graft substitutes. He is following up for final evaluation before discharge today. He still has pain to the left foot especially with weightbearing as tolerated. He is still healing fractures to metatarsals 2, 3 and 4 to the left foot. He was originally seen by orthopedics at [facility] who deferred treatment to myself here at [place]. Otherwise he is doing well. His wound is healed. Denies constitutional symptoms. No other pedal complaints at this time. Objective Data Objective Data Vital Signs: Vital Signs Temp Pulse Resp BP O2 Del Method 98.2 F 104 H 18 181/95 H Room Air 07/07/24 08:11 07/07/24 08:11 07/07/24 08:11 07/07/24 08:11 06/23/24 08:24 Oxygen Delivery Method Room Air Weight: 88.451 kg Body Mass Index (BMI) 30.5 Physical Exam Narrative Vascular: DP and PT pulse are palpable to the left lower extremity. CFT is brisk. Skin temperature great is warm to warm from proximal ankles to distal digits bilateral. No erythema. Neurological: Light touch intact. Patient does respond to painful stimuli. Dermatological: Full-thickness dorsal wound to the left foot shows evidence of sanguinous crust and healed. No erythema drainage or sign of infection. Musculoskeletal: Muscle strength is 5 out of 5 in all quadrants left lower extremity. No pain on palpation to the full-thickness wound to the dorsal aspect of the left foot. Pain on palpation to the base of the 2nd, 3rd and 4th metatarsal left foot. No pain with calf pressure. Debridement Note Debridement Note Post-Debridement Measurements and Additional Note: Post-Debridement Measurements/Treatment JH - Nurse 1 - General Ulcer Assessment Start: 06/23/24 08:23 Freq: Status: Active Protocol: CARLOS ALBERTO Activity Type Activity Date Activity User E-sign Co-sign Detail Recorded Client Recorded Date Recorded By Document 06/23/24 08:24 KW [id number] 06/23/24 08:27 KW Document 07/07/24 08:11 RB [id number] 07/07/24 08:13 RB 06/23/24 07/07/24 08:24 08:11 - Today's Visit Information Type of service Follow-up Visit (Physician/MANAGER GREEN ) Arrival Mode Ambulatory Transfer Assistance None Patient Identification Verified (Name & Yes ) Patient Requires Transmission-Based No Precautions Height and Weight Body Mass Index (BMI) 30.5 30.5 BMI Classification Obese Obese Vital Signs Temperature (97.8 F-99.1 F) 97.8 F 98.2 F Temperature Source Temporal Temporal Pulse Rate (60-100) 104 H 104 H Pulse Location Monitor Monitor Respiratory Rate (12-18) 16 18 Respiratory rate source Observation Observation Oxygen Delivery Method Room Air Blood Pressure (90/60-120/80) 154/87 H 181/95 H Blood Pressure Mean (mm Hg) 109 123 Source Monitor Monitor Position Semi-Fowlers Semi-Fowlers Blood Pressure Location Left Arm Left Arm History Since Last Visit- (Skip if this is Patient's initial visit) Have you changed medications since your No No last visit? Any new allergies or adverse reactions No No Had a fall/change in ADL's that may No No increase risk of falls Signs or symptoms of abuse and/or No No neglect since last visit Have you been in the hospital since your No No last visit? Has dressing in place as prescribed Yes Yes Has compression in place as prescribed N/A N/A Has offloadiing in place as prescribed Yes N/A Experienced any changes in pain level or No No management Left Footwear Regular Shoe Regular Shoe Right Footwear Removable Cast Regular Shoe Walker/Walking Boot Pain Scale: 0-10 Numeric Is Patient Pain Free? Yes Yes - Nurse 1 - General Ulcer Measurement Start: 06/23/24 08:23 Freq: Status: Active Protocol: Activity Type Activity Date Activity User E-sign Co-sign Detail Recorded Client Recorded Date Recorded By Document 06/23/24 08:24 KW [id number] 06/23/24 08:27 KW 06/23/24 08:24 Wound Center Nurse 1 #1 LT DORSAL FOOT -Current Size (cm) - Length 0.1 -Current Size (cm) - Width 0.1 -Current Size (cm) - Depth 0 -Total Square Cm 0.01 -Date of Last Picture (Recall this 06/23/24 field) -Epithelialization Large 67-100% -Exudate Amt None Present -Necrosis Amt Large (67-100%) -Necrotic Tissue Type Adherent Slough -Texture (Danielle-wound Skin Appearance) Assessed -Moisture (Danielle-wound Skin Appearance) Assessed -Color (Danielle-wound Skin Appearance) Assessed -Temperature (Danielle-wound Skin No Abnormality Appearance) (Pt Warm) -Tenderness on Palpation (Danielle-wound No Skin Appearance) -Ulcer Cleansing Soap and Water -Foul Odor after Cleansing No -Anesthetic Used 5% Lidocaine Gel - Nurse 2 - General Ulcer CM Notes Start: 06/23/24 08:23 Freq: Status: Active Protocol: Activity Type Activity Date Activity User E-sign Co-sign Detail Recorded Client Recorded Date Recorded By Document 06/23/24 08:42 AP [id number] 06/23/24 08:43 Document 07/07/24 08:27 AP [id number] 07/07/24 08:27 JF 06/23/24 07/07/24 08:42 08:27 Wound Center Nurse 2 -Correct Patient Yes -Correct Side, Site, Position No -Correct Procedure No -Procedure Performed No -Post Debridement (cm) - Length 0 -Post Debridement (cm) - Width 0 -Post Debridement (cm) - Depth 0 -Total Square (Post) (cm) 0 -Area of Debridement (cm) - Length 0 -Area of Debridement (cm) - Width 0 -Total Square (Area) (cm) 0 -Wound/Ulcer Outcome Healed- Epithelialized Pain Scale: 0-10 Numeric Is Patient Pain Free? Yes Yes - Nurse 3 - General Ulcer D/C NN Start: 06/23/24 08:23 Freq: Status: Active Protocol: Activity Type Activity Date Activity User E-sign Co-sign Detail Recorded Client Recorded Date Recorded By Document 06/23/24 08:43 AP [id number] 06/23/24 08:43 Document 07/07/24 08:27 AP [id number] 07/07/24 08:27 JF 06/23/24 07/07/24 08:43 08:27 Wound Care Center Nurse 3 LLE -Tubular Bandage Single Layer -Size of Tubigrip Used Size D -Size D ($) 1 Pain Scale: 0-10 Numeric Is Patient Pain Free? Yes Yes WC - Visit Discharge Discharge Condition Stable Stable Ambulatory Status Ambulatory Ambulatory Transportation Private Auto Private Auto Medication Reconcilliation completed & Yes Yes provided to patient/care provider Clinical Summary of Care Provided Yes Yes Assessment/Plan Assessment/Plan (1) Nondisplaced fracture of second metatarsal bone, left foot, initial encounter for closed fracture: CODE(S): S92.325A - Nondisplaced fracture of second metatarsal bone, left foot, initial encounter for closed fracture PLAN: Patient was examined and evaluated. All findings were discussed with the patient. All questions were answered to the patient's satisfaction. At this time the patient's full-thickness wound to the dorsal aspect of the left foot is now healed. The patient will be discharged from the wound care center and can either follow-up with myself at private office or with orthopedic at [facility]. The patient will be placed in a Tubigrip for compression control and a surgical shoe and he can be weightbearing as tolerated. I educated the patient that we will fill out a C9 to get authorization for him to follow-up with me in the office which he was kindly excepting to. He is grateful for his care. Due to the fact that the patient has healed his full-thickness wound secondary to a work-related injury to the left foot dorsal aspect he will be discharged from the wound care center at this time. He will follow-up in private office.
--- NOTE | 2024-07-08 08:06 | WC ---
PHOTO 07/07/24 LEFT FOOT
== END 2024-07-21 23:59 | disposition home or self-care (01) ==
LOC: WC 08:30
PROVIDERS: Visit Provider Podiatrist Foot & Ankle Surgery
DX: Z09 Encounter for follow-up examination after completed treatment for conditions other than malignant neoplasm (principal); S92.325D Nondisplaced fracture of second metatarsal bone, left foot, subsequent encounter for fracture with routine healing; X58.XXXD Exposure to other specified factors, subsequent encounter; S92.335D Nondisplaced fracture of third metatarsal bone, left foot, subsequent encounter for fracture with routine healing; S92.345D Nondisplaced fracture of fourth metatarsal bone, left foot, subsequent encounter for fracture with routine healing; Z79.82 Long term (current) use of aspirin; Z79.899 Other long term (current) drug therapy
CPT/HCPCS: 73630; 99213; G0463